=== PATIENT | male | born 1985 | race Hispanic/Latino ===

== ENCOUNTER 2017-11-07 20:15 | Emergency (ER) | payer SELFPAY ==
[2017-11-07 22:07] LABS: Absolute Monocytes 0.7 K/uL (0.1-1.3)
[2017-11-07 22:10] LABS: Absolute Lymphocytes (CBC) 2.6 K/uL (0.7-4.9); Absolute Neutrophil 5.4 K/uL (1.8-8.0); Basophils % 0.8 % (0-1.3); Eosinophils % 3.1 % (0-4.4); Hematocrit 40.4 % (39.6-49.0); Lymphocytes % 28.5 % (15.3-44.8); MCV 85.8 fL (80-100); MPV 8.6 fL (7.6-11.3); Monocytes % 7.8 % (3.3-12.3); RBC Red Blood Cell Count 4.71 M/uL (4.33-5.43)
[2017-11-07 22:12] LABS: Bicarbonate 28 mEq/L (21-31); Glucose Level 99 mg/dL (65-120); Lipase 34 U/L (22-51); Potassium 3.6 mEq/L (3.6-5.0); Sodium Level 140 mEq/L (135-145)
[2017-11-07 22:17] LABS: Urine Blood NEGATIVE (NEG); Urine Glucose NEGATIVE (NEG); Urine Protein NEGATIVE (NEG); Urine Specific Gravity >1.030 (1.005-1.030)
[2017-11-07 22:18] LABS: ALT/SGPT 28 IU/L (10-60); AST/SGOT 24 IU/L (10-42); Albumin 4.2 g/dL (3.2-5.5); Alkaline Phosphatase 81 IU/L (42-121); BUN Blood Urea Nitrogen 18 mg/dL (6-20); Bilirubin Direct < 0.1 mg/dL (0-0.2); Bilirubin Total 0.3 mg/dL (0.3-1.2); Protein, Total 7.7 g/dL (6.0-8.3)
[2017-11-07] MEDS ORDERED: KETOROLAC 30 MG/ML INJ ONE (22:29)
[2017-11-08] MEDS ORDERED: CYCLOBENZAPRINE 10 MG TAB ONE (00:40)
--- NOTE | 2017-11-08 00:42 | EDPHYS ---
Physician Documentation [facility] Name: Mateo Gilliam Age: 32 yrs Sex: Male : 1985 Arrival Date: 11/07/2017 Time: 20:16 Bed 27 Private MD: ED Physician Haider Rodrigues HPI: 11/07 23:00 This 32 yrs old Male presents to ER via Ambulatory with complaints of Back pm1 Pain. 23:00 The patient presents with pain . The symptoms are located in the right mid back. Onset: pm1 The symptoms/episode began/occurred 1 month(s) ago. The pain does not radiate. Associated signs and symptoms: Pertinent negatives: abdominal pain, chest pain, dysuria, fever, headache, nausea, vomiting. The problem was sustained possibly lifting or stretching on month ago. Modifying factors: The patient symptoms are alleviated by nothing, the patient symptoms are aggravated by movement. The patient has not experienced similar symptoms in the past. When patient has spasms of back pain, he feels dizziness. Historical: - Allergies: 20:25 No Known Allergies; aj - Home Meds: 20:25 None [Active]; aj - PMHx: 20:25 None; aj - PSHx: 20:25 None; aj - Immunization history:: Adult Immunizations up to date. - Social history:: Smoking status: Patient/guardian denies using tobacco, Patient uses street drugs, marijuana. ROS: 23:00 Constitutional: Negative for fever, chills, and weight loss, Eyes: Negative for injury, pm1 pain, redness, and discharge, ENT: Negative for injury, pain, and discharge, Neck: Negative for injury, pain, and swelling, Cardiovascular: Negative for chest pain, palpitations, and edema, Respiratory: Negative for shortness of breath, cough, wheezing, and pleuritic chest pain, Abdomen/GI: Negative for abdominal pain, nausea, vomiting, diarrhea, and constipation. 23:00 : Negative for injury, bleeding, discharge, and swelling, MS/Extremity: Negative for injury and deformity, Skin: Negative for injury, rash, and discoloration. 23:00 Back: Positive for of the right mid back, Pain, Negative for decreased range of motion, radiated pain. 23:00 Neuro: Positive for dizziness, Negative for headache, numbness, syncope, near syncope, tingling, visual changes, weakness. Exam: 23:00 Constitutional: This is a well developed, well nourished patient who is awake, alert, pm1 and in no acute distress. Head/Face: Normocephalic, atraumatic. Eyes: Pupils equal round and reactive to light, extra-ocular motions intact. Lids and lashes normal. Conjunctiva and sclera are non-icteric and not injected. Cornea within normal limits. Periorbital areas with no swelling, redness, or edema. ENT: Nares patent. No nasal discharge, no septal abnormalities noted. Tympanic membranes are normal and external auditory canals are clear. Oropharynx with no redness, swelling, or masses, exudates, or evidence of obstruction, uvula midline. Mucous membranes moist. Neck: Trachea midline, no thyromegaly or masses palpated, and no cervical lymphadenopathy. Supple, full range of motion without nuchal rigidity, or vertebral point tenderness. No Meningismus. Chest/axilla: Normal chest wall appearance and motion. Nontender with no deformity. No lesions are appreciated. Cardiovascular: Regular rate and rhythm with a normal S1 and S2. No gallops, murmurs, or rubs. Normal PMI, no JVD. No pulse deficits. Respiratory: Lungs have equal breath sounds bilaterally, clear to auscultation and percussion. No rales, rhonchi or wheezes noted. No increased work of breathing, no retractions or nasal flaring. Abdomen/GI: Soft, non-tender, with normal bowel sounds. No distension or tympany. No guarding or rebound. No evidence of tenderness throughout. 23:00 Skin: Warm, dry with normal turgor. Normal color with no rashes, no lesions, and no evidence of cellulitis. MS/ Extremity: Pulses equal, no cyanosis. Neurovascular intact. Full, normal range of motion. 23:00 Back: pain, that is mild, of the right mid back, normal spinal alignment noted. 23:00 Neuro: Orientation: is normal, Mentation: is normal, Cranial nerves: CN II- XII are normal as tested, Cerebellar function: normal finger to nose testing, Motor: moves all fours, strength is normal, strength is 5/5 in all extremities, Sensation: is normal, no obvious gross deficits. Vital Signs: 20:25 BP 157 / 97; Pulse 88; Resp 17; Temp 97.5; Pulse Ox 98% on R/A; Weight 99.79 kg; Height aj 5 ft. 5 in. (165.10 cm); Pain 7/10; 21:59 BP 134 / 87; Pulse 78; Resp 18 S; Pulse Ox 99% on R/A; Pain 7/10; ea 22:45 BP 131 / 77; Pulse 76; Resp 18; Pulse Ox 100% on R/A; ea 23:30 BP 134 / 82; Pulse 71; Resp 18 S; Pulse Ox 99% on R/A; ea 11/08 00:43 BP 139 / 86; Pulse 60; Resp 18; Pulse Ox 99% on R/A; ea 11/07 20:25 Body Mass Index 36.61 (99.79 kg, 165.10 cm) aj MDM: 11/07 21:00 Patient medically screened. pm1 11/08 00:36 Data reviewed: vital signs. Data interpreted: Pulse oximetry: on room air is 99 %. pm1 Interpretation: normal. Counseling: I had a detailed discussion with the patient and/or guardian regarding: the historical points, exam findings, and any diagnostic results supporting the discharge/admit diagnosis, lab results. 11/07 21:25 Order name: Basic Metabolic Panel; Complete Time: 22:22 pm1 11/07 21:25 Order name: CBC with Diff; Complete Time: 22:17 pm1 11/07 21:25 Order name: Hepatic Function; Complete Time: 22:22 pm1 11/07 21:25 Order name: Lipase; Complete Time: 22:22 pm1 11/07 22:10 Order name: Urine Dipstick--Ancillary (enter results); Complete Time: 22:22 rg2 11/07 21:25 Order name: IV Saline Lock; Complete Time: 21:56 pm1 11/07 21:25 Order name: Labs collected and sent; Complete Time: 21:56 pm1 11/07 21:25 Order name: Urine Dipstick-Ancillary (obtain specimen); Complete Time: 21:57 pm1 Administered Medications: 11/07 22:41 Drug: TORadol 30 mg Route: IVP; Site: right antecubital; ea 11/08 00:43 Follow up: Response: No adverse reaction; Pain is decreased ea 00:45 Drug: Flexeril 10 mg Route: PO; ea 00:59 Follow up: Response: Medication administered at discharge. kristyn Disposition: 03:01 Co-signature as Attending Physician, Haider Rodrigues MD. treva Disposition: 11/08/17 00:41 Discharged to Home. Impression: Strain of muscle and tendon of back wall of thorax. - Condition is Stable. - Discharge Instructions: Muscle Strain. - Prescriptions for Naprosyn 500 mg Oral Tablet - take 1 tablet by ORAL route 2 times per day take with food; 30 tablet. Cyclobenzaprine 10 mg Oral Tablet - take 1 tablet by ORAL route every 8 hours As needed; 30 tablet. - Medication Reconciliation Form, Thank You Letter form. - Follow up: Emergency Department; When: As needed; Reason: Worsening of condition. Follow up: Private Physician; When: 2 - 3 days; Reason: Recheck today's complaints, Continuance of care, Re-evaluation by your physician. - Problem is new. - Symptoms have improved. Signatures: Dispatcher [employer] EDMS Alicia Ball, RN Justin Leon, AIRLINE MANAGERIAL SUPERVISOR AIRLINE MANAGERIAL SUPERVISOR pm1 Rylie Baugh RN RN ea Starr, Gregory, MD MD
--- NOTE | 2017-11-08 00:42 | ER ---
Nurse's Notes [facility] Name: Mateo Gilliam Age: 32 yrs Sex: Male : 1985 Arrival Date: 11/07/2017 Time: 20:16 Bed 27 Private MD: Diagnosis: Strain of muscle and tendon of back wall of thorax Presentation: 11/07 20:23 Presenting complaint: Presenting complaint: Patient states: Upper back pain with aj dizziness and blurred vision for 1 month. Patent reports pain is unchanged with repositioning or medication. 20:23 Transition of care: patient was not received from another setting of care. Onset of aj symptoms was October 07, 2017. Initial Sepsis Screen: Does the patient meet any 2 criteria? No. Patient's initial sepsis screen is negative. Does the patient have a suspected source of infection? No. Patient's initial sepsis screen is negative. Care prior to arrival: None. 20:23 Method Of Arrival: Ambulatory aj 20:23 Acuity: BONITA 4 aj Triage Assessment: 20:25 General: Appears in no apparent distress. comfortable, Behavior is calm, cooperative, aj appropriate for age. Pain: Complains of pain in left scapular area, right scapular area and thoracic area Pain currently is 7 out of 10 on a pain scale. Neuro: Level of Consciousness is awake, alert, obeys commands, Oriented to person, place, time, situation. Neuro: Reports blurred vision dizziness. Respiratory: Airway is patent Respiratory effort is even, unlabored, Respiratory pattern is regular, symmetrical. Derm: Skin is intact, is healthy with good turgor, Skin is pink, warm \T\ dry. normal. Musculoskeletal: Circulation, motion, and sensation intact. Historical: - Allergies: 20:25 No Known Allergies; aj - Home Meds: 20:25 None [Active]; aj - PMHx: 20:25 None; aj - PSHx: 20:25 None; aj - Immunization history:: Adult Immunizations up to date. - Social history:: Smoking status: Patient/guardian denies using tobacco, Patient uses street drugs, marijuana. Screenin:15 Abuse screen: Denies threats or abuse. Nutritional screening: No deficits noted. ea Tuberculosis screening: No symptoms or risk factors identified. Fall Risk None identified. Assessment: 21:09 General: Appears in no apparent distress. Behavior is calm, cooperative, appropriate ea for age. Pain: Complains of pain in right mid back and right low back. Pain: Pain radiates to left low back and left mid back Pain currently is 7 out of 10 on a pain scale. Quality of pain is described as burning, Pain began month ago Is intermittent. Neuro: Level of Consciousness is awake, alert, obeys commands, Oriented to person, place, time, situation. Cardiovascular: Heart tones present Patient's skin is warm and dry. Respiratory: Airway is patent Respiratory effort is even, unlabored, Respiratory pattern is regular, symmetrical, Breath sounds are clear bilaterally. GI: No signs and/or symptoms were reported involving the gastrointestinal system. : No signs and/or symptoms were reported regarding the genitourinary system. Derm: Skin is pink, warm \T\ dry. 22:50 Reassessment: Patient and/or family updated on plan of care and expected duration. Pain ea level reassessed. Patient is alert, oriented x 3, equal unlabored respirations, skin warm/dry/pink. 23:50 Reassessment: Patient and/or family updated on plan of care and expected duration. Pain ea level reassessed. Patient is alert, oriented x 3, equal unlabored respirations, skin warm/dry/pink. 11/08 00:34 Reassessment: Patient and/or family updated on plan of care and expected duration. Pain ea level reassessed. Patient is alert, oriented x 3, equal unlabored respirations, skin warm/dry/pink. 00:57 Reassessment: Patient and/or family updated on plan of care and expected duration. Pain ea level reassessed. Patient is alert, oriented x 3, equal unlabored respirations, skin warm/dry/pink. Discharge instructions given to patient verbalized the understanding of instruction. Vital Signs: 11/07 20:25 BP 157 / 97; Pulse 88; Resp 17; Temp 97.5; Pulse Ox 98% on R/A; Weight 99.79 kg; Height aj 5 ft. 5 in. (165.10 cm); Pain 7/10; 21:59 BP 134 / 87; Pulse 78; Resp 18 S; Pulse Ox 99% on R/A; Pain 7/10; ea 22:45 BP 131 / 77; Pulse 76; Resp 18; Pulse Ox 100% on R/A; ea 23:30 BP 134 / 82; Pulse 71; Resp 18 S; Pulse Ox 99% on R/A; ea 11/08 00:43 BP 139 / 86; Pulse 60; Resp 18; Pulse Ox 99% on R/A; ea 11/07 20:25 Body Mass Index 36.61 (99.79 kg, 165.10 cm) aj ED Course: 11/07 20:16 Patient arrived in ED. ds1 20:24 Triage completed. aj 20:25 Arm band placed on left wrist. Patient placed in waiting room, Patient notified of wait aj time. 20:31 Justin Weiss NP is PHCP. pm1 20:31 Haider Rodrigues MD is Attending Physician. pm1 21:00 Patient has correct armband on for positive identification. Bed in low position. Call ea light in reach. Side rails up X 1. 21:01 Rylie Baugh RN is Primary Nurse. ea 21:42 Inserted saline lock: 20 gauge in right antecubital area, using aseptic technique. ea Blood collected. 11/08 00:58 No provider procedures requiring assistance completed. IV discontinued, intact, ea bleeding controlled, No redness/swelling at site. Pressure dressing applied. Administered Medications: 11/07 22:41 Drug: TORadol 30 mg Route: IVP; Site: right antecubital; ea 11/08 00:43 Follow up: Response: No adverse reaction; Pain is decreased ea 00:45 Drug: Flexeril 10 mg Route: PO; ea 00:59 Follow up: Response: Medication administered at discharge. ea Outcome: 00:41 Discharge ordered by MD. pm1 00:58 Discharged to home ambulatory. ea 00:58 Condition: improved 00:58 Discharge instructions given to patient, Instructed on discharge instructions, follow up and referral plans. medication usage, Demonstrated understanding of instructions, follow-up care, medications, Prescriptions given X 2. 01:00 Patient left the ED. ea Signatures: Alicia Ball RN RN Adriane Miner ds1 Justin Weiss NP FIELD COUNSEL pm1 Rylie Baugh, IVAN LOVE ea Corrections: (The following items were deleted from the chart) 11/07 20:24 20:23 Presenting complaint: aj aj
[2017-11-08 01:10] VITALS: TEMP 97.5
[2017-11-08 01:13] VITALS: O2SAT 99
[2017-11-08 01:14] VITALS: BP 139/86
== END 2017-11-08 01:00 | disposition home or self-care (01) ==
LOC: ER 20:15
DX: S29.012A Strain of muscle and tendon of back wall of thorax, initial encounter (principal); X50.9XXA Other and unspecified overexertion or strenuous movements or postures, initial encounter; Y93.9 Activity, unspecified; Y92.9 Unspecified place or not applicable
CPT/HCPCS: 36415; 80048; 80076; 81003; 83690; 85025; 96374; 99284

== ENCOUNTER 2018-06-02 13:21 | Emergency (ER) | payer SELFPAY ==
--- NOTE | 2018-06-02 14:35 | RAD REPORT ---
EXAM DESCRIPTION: RAD - Forearm Left - 06/02/2018 2:21 pm CLINICAL HISTORY: Left forearm pain status post injury FINDINGS: No fracture is seen
--- NOTE | 2018-06-02 15:04 | EDPHYS ---
Physician Documentation [facility] Name: Mateo Gilliam Age: 33 yrs Sex: Male : 1985 Arrival Date: 06/02/2018 Time: 13:24 Bed 30 Private MD: None, None ED Physician Jewel To HPI: 06/02 14:05 This 33 yrs old Male presents to ER via Ambulatory with complaints of Arm ps1 Injury. 14:05 patient was shoveling a couple of days ago and thinks he hit a root. He has pain in the ps1 left forearm on the dorsal aspect. Pain rated as moderate. Worse with dorsiflexion of wrist. Mild swelling. . Historical: - Allergies: 13:32 No Known Allergies; sv - Home Meds: 13:32 None [Active]; sv - PMHx: 13:32 None; sv - PSHx: 13:32 None; sv - Immunization history:: Flu vaccine is not up to date. - Social history:: Smoking status: Patient uses tobacco products, smokes one-half pack cigarettes per day. - Ebola Screening: : No symptoms or risks identified at this time. ROS: 14:05 Constitutional: Negative for fever, chills, and weight loss, Eyes: Negative for injury, ps1 pain, redness, and discharge, Cardiovascular: Negative for chest pain, palpitations, and edema, Respiratory: Negative for shortness of breath, cough, wheezing, and pleuritic chest pain, Abdomen/GI: Negative for abdominal pain, nausea, vomiting, diarrhea, and constipation. 14:05 MS/extremity: Positive for pain, swelling, tenderness. Exam: 14:05 Constitutional: This is a well developed, well nourished patient who is awake, alert, ps1 and in no acute distress. Head/Face: Normocephalic, atraumatic. Eyes: Pupils equal round and reactive to light, extra-ocular motions intact. Lids and lashes normal. Conjunctiva and sclera are non-icteric and not injected. Chest/axilla: Normal chest wall appearance and motion. Nontender with no deformity. No lesions are appreciated. Cardiovascular: Regular rate and rhythm. No gallops, murmurs, or rubs. Normal PMI, no JVD. No pulse deficits. Respiratory: Lungs have equal breath sounds bilaterally, clear to auscultation and percussion. No rales, rhonchi or wheezes noted. No increased work of breathing, no retractions or nasal flaring. Abdomen/GI: Soft, non-tender, with normal bowel sounds. No distension or tympany. No guarding or rebound. No evidence of tenderness throughout. MS/ Extremity: Pulses equal, no cyanosis. Neurovascular intact. Full, normal range of motion. Neuro: Awake and alert, GCS 15, oriented to person, place, time, and situation. Cranial nerves II-XII grossly intact. Sensory grossly intact. Vital Signs: 13:32 BP 131 / 87; Pulse 85; Resp 18; Temp 97.4; Pulse Ox 100% ; Weight 97.52 kg; Height 5 sv ft. 5 in. (165.10 cm); Pain 10; 13:32 Body Mass Index 35.78 (97.52 kg, 165.10 cm) sv MDM: 14:14 Patient medically screened. ps1 06/02 13:35 Order name: Forearm Left XRAY; Complete Time: 14:41 sv Administered Medications: No medications were administered Disposition: 06/02/18 14:50 Discharged to Home. Impression: Extensor Tendonitis left arm. - Condition is Stable. - Discharge Instructions: Tendinitis. - Prescriptions for Anaprox DS 550 mg Oral Tablet - take 1 tablet by ORAL route every 12 hours As needed; 20 tablet. Robaxin 500 mg Oral Tablet - take 2 tablet by ORAL route every 6 hours As needed; 40 tablet. Medrol (Neal) 4 mg Oral Tablets, Dose Pack - take 1 tablet by ORAL route as directed - follow package instructions; 1 packet. - Medication Reconciliation Form, Thank You Letter, Antibiotic Education, Prescription Opioid Use form. - Follow up: Private Physician; When: As needed; Reason: Further diagnostic work-up, Recheck today's complaints, Continuance of care, Re-evaluation by your physician. Follow up: Emergency Department; When: As needed; Reason: Worsening of condition. - Problem is new. - Symptoms are unchanged. Signatures: Dispatcher [employer] Louise Travis RN RN sv Mily Kelly RN RN Jewel Watkins MD MD ps1 Corrections: (The following items were deleted from the chart) 15:02 14:50 06/02/2018 14:50 Discharged to Home. Impression: Extensor Tendonitis left arm. ss Condition is Stable. Forms are Medication Reconciliation Form, Thank You Letter, Antibiotic Education, Prescription Opioid Use. Follow up: Private Physician; When: As needed; Reason: Further diagnostic work-up, Recheck today's complaints, Continuance of care, Re-evaluation by your physician. Follow up: Emergency Department; When: As needed; Reason: Worsening of condition. Problem is new. Symptoms are unchanged. ps1
--- NOTE | 2018-06-02 15:04 | ER ---
Nurse's Notes [facility] Name: Mateo Gilliam Age: 33 yrs Sex: Male : 1985 Arrival Date: 06/02/2018 Time: 13:24 Bed 30 Private MD: None, None Diagnosis: Extensor Tendonitis left arm Presentation: 06/02 13:30 Presenting complaint: Patient states: left forearm pain after shoveling yesterday at sv work and hit a hard tree trunk. Transition of care: patient was not received from another setting of care. Onset of symptoms was June 01, 2018. Care prior to arrival: None. 13:30 Method Of Arrival: Ambulatory sv 13:30 Acuity: BONITA 4 sv 15:02 Risk Assessment: Do you want to hurt yourself or someone else? Patient reports no ss desire to harm self or others. Initial Sepsis Screen: Does the patient meet any 2 criteria? No. Patient's initial sepsis screen is negative. Does the patient have a suspected source of infection? No. Patient's initial sepsis screen is negative. Triage Assessment: 13:33 General: Appears in no apparent distress. uncomfortable, Behavior is calm, cooperative, sv appropriate for age. Pain: Complains of pain in left arm. Neuro: Level of Consciousness is awake, alert, obeys commands, Oriented to person, place, time, situation, Moves all extremities. Full function Gait is steady. Respiratory: Respiratory effort is even, unlabored, Respiratory pattern is regular, symmetrical. 13:45 Injury Description: Bruise sustained to dorsal aspect of left forearm. iw Historical: - Allergies: 13:32 No Known Allergies; sv - Home Meds: 13:32 None [Active]; sv - PMHx: 13:32 None; sv - PSHx: 13:32 None; sv - Immunization history:: Flu vaccine is not up to date. - Social history:: Smoking status: Patient uses tobacco products, smokes one-half pack cigarettes per day. - Ebola Screening: : No symptoms or risks identified at this time. Screenin:08 Abuse screen: Denies threats or abuse. Denies injuries from another. Nutritional iw screening: No deficits noted. Tuberculosis screening: No symptoms or risk factors identified. Fall Risk None identified. Assessment: 14:07 General: Appears in no apparent distress. comfortable, Behavior is calm, cooperative. iw Pain: Complains of pain in dorsal aspect of left forearm and left wrist. Neuro: Level of Consciousness is awake, alert, obeys commands, Oriented to person, place, time, situation, Moves all extremities. Full function. Cardiovascular: Patient's skin is warm and dry. Respiratory: Respiratory effort is even, unlabored, Respiratory pattern is regular, symmetrical. GI:. Derm: Skin is intact, is healthy with good turgor. Musculoskeletal: Reports pain in left arm. Vital Signs: 13:32 BP 131 / 87; Pulse 85; Resp 18; Temp 97.4; Pulse Ox 100% ; Weight 97.52 kg; Height 5 sv ft. 5 in. (165.10 cm); Pain 10/10; 13:32 Body Mass Index 35.78 (97.52 kg, 165.10 cm) sv ED Course: 13:24 Patient arrived in ED. sb2 13:24 None, None is Private Physician. sb2 13:32 Triage completed. sv 13:33 Arm band placed on. sv 14:01 Jewel To MD is Attending Physician. ps1 14:02 Yvonne Harrington, RN is Primary Nurse. iw 14:08 Patient has correct armband on for positive identification. iw 14:19 X-ray completed. Portable x-ray completed in exam room. Patient tolerated procedure jb2 well. 14:21 Forearm Left XRAY In Process Unspecified. EDMS 15:00 No provider procedures requiring assistance completed. Patient did not have IV access ss during this emergency room visit. Administered Medications: No medications were administered Outcome: 14:50 Discharge ordered by . ps1 15:00 Discharged to home ambulatory. ss 15:00 Condition: good 15:00 Discharge instructions given to patient, Instructed on discharge instructions, follow up and referral plans. medication usage, Demonstrated understanding of instructions, follow-up care, medications, Prescriptions given X 3. 15:02 Patient left the ED. ss Signatures: Dispatcher [employer] EDNJ Louise Malone, IVAN LOVE Alfa Guerra jb2 Yvonne Harrington, IVAN LOVE Mily Kelly RN RN Jewel To MD MD ps1 Marisa Decker sb2
[2018-06-02 15:26] VITALS: BP 131/87; TEMP 97.4; O2SAT 100
== END 2018-06-02 15:02 | disposition home or self-care (01) ==
LOC: ER 13:21
DX: M77.8 Other enthesopathies, not elsewhere classified (principal)
CPT/HCPCS: 99283

== ENCOUNTER 2018-08-07 04:36 | Emergency (ER) | payer SELFPAY ==
[2018-08-07] MEDS ORDERED: NA CHLORIDE 0.9% 1,000 ML ONE (05:21)
[2018-08-07 05:22] LABS: Absolute Lymphocytes (CBC) 1.5 K/uL (0.7-4.9); Absolute Monocytes 1.3 K/uL (0.1-1.3); Absolute Neutrophil 7.6 K/uL (1.8-8.0); Basophils % 0.6 % (0-1.3); Hematocrit 46.8 % (39.6-49.0); Lymphocytes % 13.8 % (15.3-44.8); MPV 8.8 fL (7.6-11.3); Monocytes % 12.6 % (3.3-12.3); RBC Red Blood Cell Count 5.29 M/uL (4.33-5.43)
[2018-08-07 05:33] LABS: ALT/SGPT 33 U/L (12-78); AST/SGOT 19 U/L (15-37); Albumin 3.8 g/dL (3.4-5.0); Alkaline Phosphatase 94 U/L (45-117); BUN Blood Urea Nitrogen 19 mg/dL (7-18); Bicarbonate 25 mmol/L (21-32); Bilirubin Direct 0.1 mg/dL (0-0.2); Bilirubin Total 0.4 mg/dL (0.2-1.0); Glucose Level 104 mg/dL (74-106); Lipase 117 U/L (73-393); Potassium 3.7 mmol/L (3.5-5.1); Protein, Total 7.9 g/dL (6.4-8.2); Sodium Level 139 mmol/L (136-145)
[2018-08-07] MEDS ORDERED: CIPROFLOXACIN 400mg IV 400 MG/200 ML BAG IV ONE (06:29)
[2018-08-07] MEDS ORDERED: METRONIDAZOLE 500mg IVPB 500 MG/100 ML BAG IV ONE (06:29)
--- NOTE | 2018-08-07 06:58 | RAD REPORT ---
EXAM DESCRIPTION: RAD - Chest Single View - 08/07/2018 5:30 am CLINICAL HISTORY: Right-sided chest pain COMPARISON: July 2017 TECHNIQUE: AP portable chest image was obtained [id number] hours . FINDINGS: Lungs are clear. Heart and vasculature are normal. No measurable pleural effusion and no p neumothorax. No acute bony abnormality seen. No acute aortic findings suspected. IMPRESSION: No acute cardiopulmonary process. No significant interval change.
--- NOTE | 2018-08-07 07:19 | ER ---
Nurse's Notes [facility] Name: Mateo Gilliam Age: 33 yrs Sex: Male : 1985 Arrival Date: 08/07/2018 Time: 04:40 Bed 14 Private MD: Diagnosis: Abdominal tenderness-mild enteritis, non specific prominence of mesenteric lymph nodes Presentation: 08/07 04:54 Presenting complaint: Patient states: he has had pain in his R side and diarrhea for aa1 several months but last night the pain became worse and he started having chills. Transition of care: patient was not received from another setting of care. Onset of symptoms was May 2018. Risk Assessment: Do you want to hurt yourself or someone else? Patient reports no desire to harm self or others. Initial Sepsis Screen: Does the patient meet any 2 criteria? No. Patient's initial sepsis screen is negative. Does the patient have a suspected source of infection? Yes: Acute abdominal pain. Care prior to arrival: None. 04:54 Method Of Arrival: Ambulatory aa1 04:54 Acuity: BONITA 3 aa1 Triage Assessment: 04:56 General: Appears in no apparent distress. comfortable, Behavior is calm, cooperative, aa1 appropriate for age. Historical: - Allergies: 04:56 No Known Allergies; aa1 - Home Meds: 04:56 None [Active]; aa1 - PMHx: 04:56 None; aa1 - PSHx: 04:56 None; aa1 - Immunization history:: Flu vaccine is not up to date. - Social history:: Smoking status: Patient/guardian denies using tobacco, Patient uses street drugs, marijuana. - Ebola Screening: : No symptoms or risks identified at this time. Screenin:00 Abuse screen: Denies threats or abuse. Nutritional screening: No deficits noted. jb4 Tuberculosis screening: No symptoms or risk factors identified. Fall Risk IV access (20 points). Total Ball Fall Scale indicates No Risk (0-24 pts). Assessment: 05:00 General: Appears in no apparent distress. uncomfortable, Behavior is calm, cooperative, jb4 appropriate for age. Pain: Complains of pain in abdomen Pain does not radiate. Pain currently is 8 out of 10 on a pain scale. Neuro: Level of Consciousness is awake, alert, obeys commands, Oriented to person, place, time, situation. Cardiovascular: Patient's skin is warm and dry. Respiratory: Airway is patent Respiratory effort is even, unlabored, Respiratory pattern is regular, symmetrical. GI: Bowel sounds present X 4 quads. Abd is soft X 4 quads Abdomen is tender to palpation X 4 quads. : No signs and/or symptoms were reported regarding the genitourinary system. EENT: No signs and/or symptoms were reported regarding the EENT system. Derm: Skin is intact, Skin is pink, warm \T\ dry. Musculoskeletal: Circulation, motion, and sensation intact. 06:39 Reassessment: Patient appears in no apparent distress at this time. Patient and/or aa1 family updated on plan of care and expected duration. Pain level reassessed. Patient is alert, oriented x 3, equal unlabored respirations, skin warm/dry/pink. Pt back from CT, awaiting results. 07:00 General: Appears in no apparent distress. comfortable, Behavior is calm, cooperative. rb1 Pain: Complains of pain in abdomen Pain currently is 5 out of 10 on a pain scale. Neuro: Level of Consciousness is awake, alert, obeys commands, Oriented to person, place, time, situation. Cardiovascular: Capillary refill < 3 seconds is brisk in bilateral fingers. Respiratory: Airway is patent Respiratory effort is even, unlabored, Respiratory pattern is regular, symmetrical. GI: Bowel sounds present X 4 quads. Reports diarrhea. : No signs and/or symptoms were reported regarding the genitourinary system. Derm: Skin is pink, warm \T\ dry. 07:23 Reassessment: Discharge pending due to IV antibiotics infusing. rb1 07:45 Reassessment: Patient appears in no apparent distress at this time. Patient and/or rb1 family updated on plan of care and expected duration. Pain level reassessed. Patient is alert, oriented x 3, equal unlabored respirations, skin warm/dry/pink. Patient states feeling better. Vital Signs: 04:56 BP 134 / 87; Pulse 91; Resp 18; Temp 98.8; Pulse Ox 98% on R/A; Weight 95.25 kg; Height aa1 5 ft. 5 in. (165.10 cm); Pain 10/10; 05:45 BP 120 / 74; Pulse 88; Resp 18; Pulse Ox 99% on R/A; aa1 06:39 BP 134 / 88; Pulse 82; Resp 18; Pulse Ox 100% on R/A; aa1 07:22 BP 125 / 77; Pulse 85; Resp 17; Pulse Ox 99% on R/A; Pain 5/10; rb1 04:56 Body Mass Index 34.95 (95.25 kg, 165.10 cm) aa1 ED Course: 04:40 Patient arrived in ED. es 04:48 Pradip Damico MD is Attending Physician. mary 04:50 Gil Klein, IVAN is Primary Nurse. jb4 04:56 Triage completed. aa1 05:00 Patient has correct armband on for positive identification. Placed in gown. Bed in low jb4 position. Call light in reach. Side rails up X 1. Pulse ox on. NIBP on. 05:00 Initial lab(s) drawn, by nh, sent to lab. Inserted saline lock: 20 gauge in right jb4 forearm, using aseptic technique. Blood collected. 05:29 X-ray completed. Portable x-ray completed in exam room. Patient tolerated procedure kw well. 05:32 Chest Single View In Process Unspecified. EDMS 06:[address] via wheelchair. eh 06:26 Abdomen In Process Unspecified. EDMS 06:28 CT completed. Patient tolerated procedure well. Patient moved back from CT. eh 07:00 Arm band placed on right wrist. rb1 07:17 Yvrose Sahni MD is Referral Physician. mary 07:48 No provider procedures requiring assistance completed. IV discontinued, intact, rb1 bleeding controlled, No redness/swelling at site. Pressure dressing applied. Administered Medications: 05:14 Drug: NS 0.9% 1000 ml Route: IV; Rate: 1 bolus; Site: right forearm; jb4 06:40 Drug: Flagyl 500 mg Volume: 100 ml; Route: IVPB; Rate: 200 ml/hr; Infused Over: 30 aa1 mins; Site: right forearm; 07:00 Follow up: Response: No adverse reaction rb1 07:45 Follow up: IV Status: Completed infusion rb1 06:41 Drug: Cipro 400 mg Volume: 200 ml; Route: IVPB; Infused Over: 60 mins; Site: right aa1 forearm; 07:00 Follow up: Response: No adverse reaction rb1 07:45 Follow up: IV Status: Completed infusion rb1 Outcome: 07:19 Discharge ordered by . mary 07:49 Discharged to home ambulatory, with family. rb1 07:49 Condition: stable 07:49 Discharge instructions given to patient, Instructed on discharge instructions, follow up and referral plans. medication usage, Demonstrated understanding of instructions, follow-up care, medications, Prescriptions given X x 5 07:50 Patient left the ED. rb1 Signatures: Dispatcher [employer] Celi Rich, RN RN aa1 Pradip Damico MD MD cha Salyer, Edna es Hagler, Ervin eh Whitley, Kimberlee kw Barber, Rebecca, RN RN rb1 Gil Klein RN RN jb4
--- NOTE | 2018-08-07 07:20 | EDPHYS ---
Physician Documentation [facility] Name: Mateo Gilliam Age: 33 yrs Sex: Male : 1985 Arrival Date: 08/07/2018 Time: 04:40 Bed 14 Private MD: JYOTSNA Physician Pradip Damico HPI: 08/07 05:51 This 33 yrs old Male presents to ER via Ambulatory with complaints of mary Abdominal Pain, Fever. 05:51 The patient reports fever, that was measured at 98.8 degrees Fahrenheit. Onset: The mary symptoms/episode began/occurred 1 week(s) ago. Modifying factors: there are no obvious modifying factors. Associated signs and symptoms: Pertinent positives: abdominal pain. Severity of symptoms: At their worst the symptoms were mild moderate in the emergency department the symptoms are unchanged despite home interventions. The patient has not experienced similar symptoms in the past. Historical: - Allergies: 04:56 No Known Allergies; aa1 - Home Meds: 04:56 None [Active]; aa1 - PMHx: 04:56 None; aa1 - PSHx: 04:56 None; aa1 - Immunization history:: Flu vaccine is not up to date. - Social history:: Smoking status: Patient/guardian denies using tobacco, Patient uses street drugs, marijuana. - Ebola Screening: : No symptoms or risks identified at this time. ROS: 05:52 Constitutional: Negative for fever, chills, and weight loss, Eyes: Negative for injury, mary pain, redness, and discharge, ENT: Negative for injury, pain, and discharge, Neck: Negative for injury, pain, and swelling, Cardiovascular: Negative for chest pain, palpitations, and edema, Respiratory: Negative for shortness of breath, cough, wheezing, and pleuritic chest pain, Back: Negative for injury and pain, : Negative for injury, bleeding, discharge, and swelling, MS/Extremity: Negative for injury and deformity, Skin: Negative for injury, rash, and discoloration, Neuro: Negative for headache, weakness, numbness, tingling, and seizure, Psych: Negative for depression, anxiety, suicide ideation, homicidal ideation, and hallucinations, Allergy/Immunology: Negative for hives, rash, and allergies, Endocrine: Negative for neck swelling, polydipsia, polyuria, polyphagia, and marked weight changes, Hematologic/Lymphatic: Negative for swollen nodes, abnormal bleeding, and unusual bruising. 05:52 Abdomen/GI: Positive for abdominal pain, rectal bleeding, of the left upper quadrant and left lower quadrant. Exam: 05:52 Constitutional: This is a well developed, well nourished patient who is awake, alert, mary and in no acute distress. Head/Face: Normocephalic, atraumatic. Eyes: Pupils equal round and reactive to light, extra-ocular motions intact. Lids and lashes normal. Conjunctiva and sclera are non-icteric and not injected. Cornea within normal limits. Periorbital areas with no swelling, redness, or edema. ENT: Nares patent. No nasal discharge, no septal abnormalities noted. Tympanic membranes are normal and external auditory canals are clear. Oropharynx with no redness, swelling, or masses, exudates, or evidence of obstruction, uvula midline. Mucous membranes moist. Neck: Trachea midline, no thyromegaly or masses palpated, and no cervical lymphadenopathy. Supple, full range of motion without nuchal rigidity, or vertebral point tenderness. No Meningismus. Chest/axilla: Normal chest wall appearance and motion. Nontender with no deformity. No lesions are appreciated. Cardiovascular: Regular rate and rhythm with a normal S1 and S2. No gallops, murmurs, or rubs. Normal PMI, no JVD. No pulse deficits. Respiratory: Lungs have equal breath sounds bilaterally, clear to auscultation and percussion. No rales, rhonchi or wheezes noted. No increased work of breathing, no retractions or nasal flaring. Back: No spinal tenderness. No costovertebral tenderness. Full range of motion. Male : Normal genitalia with no discharge or lesions. Skin: Warm, dry with normal turgor. Normal color with no rashes, no lesions, and no evidence of cellulitis. MS/ Extremity: Pulses equal, no cyanosis. Neurovascular intact. Full, normal range of motion. Neuro: Awake and alert, GCS 15, oriented to person, place, time, and situation. Cranial nerves II-XII grossly intact. Motor strength 5/5 in all extremities. Sensory grossly intact. Cerebellar exam normal. Normal gait. Psych: Awake, alert, with orientation to person, place and time. Behavior, mood, and affect are within normal limits. 05:52 Abdomen/GI: Inspection: distension, Bowel sounds: active, Palpation: soft, Liver: no appreciated palpable abnormalities, Hernia: not appreciated. Vital Signs: 04:56 BP 134 / 87; Pulse 91; Resp 18; Temp 98.8; Pulse Ox 98% on R/A; Weight 95.25 kg; Height aa1 5 ft. 5 in. (165.10 cm); Pain 10/10; 05:45 BP 120 / 74; Pulse 88; Resp 18; Pulse Ox 99% on R/A; aa1 06:39 BP 134 / 88; Pulse 82; Resp 18; Pulse Ox 100% on R/A; aa1 07:22 BP 125 / 77; Pulse 85; Resp 17; Pulse Ox 99% on R/A; Pain 5/10; rb1 04:56 Body Mass Index 34.95 (95.25 kg, 165.10 cm) aa1 MDM: 04:48 Patient medically screened. [facility] 08/07 04:52 Order name: Chest Single View XRAY [facility] 08/07 05:13 Order name: Abdomen EDSD 08/07 05:14 Order name: Basic Metabolic Panel; Complete Time: 05:49 EDSD 08/07 05:14 Order name: Liver (Hepatic) Function; Complete Time: 05:49 EDMS 08/07 05:14 Order name: Lipase; Complete Time: 05:49 EDSD 08/07 05:14 Order name: CBC with Automated Diff; Complete Time: 05:49 [facility] 08/07 07:29 Order name: Urine Dipstick--Ancillary (enter results) 08/07 04:52 Order name: IV Saline Lock; Complete Time: 05:15 [facility] 08/07 04:52 Order name: Labs collected and sent; Complete Time: 05:15 [facility] 08/07 04:52 Order name: Urine Dipstick-Ancillary (obtain specimen); Complete Time: 07:19 [facility] 08/07 05:17 Order name: Chest Single View; Complete Time: 07:17 EDMS Administered Medications: 05:14 Drug: NS 0.9% 1000 ml Route: IV; Rate: 1 bolus; Site: right forearm; jb4 06:40 Drug: Flagyl 500 mg Volume: 100 ml; Route: IVPB; Rate: 200 ml/hr; Infused Over: 30 aa1 mins; Site: right forearm; 07:00 Follow up: Response: No adverse reaction rb1 07:45 Follow up: IV Status: Completed infusion rb1 06:41 Drug: Cipro 400 mg Volume: 200 ml; Route: IVPB; Infused Over: 60 mins; Site: right aa1 forearm; 07:00 Follow up: Response: No adverse reaction rb1 07:45 Follow up: IV Status: Completed infusion rb1 Disposition: 08/07/18 07:19 Discharged to Home. Impression: Abdominal tenderness - mild enteritis, non specific prominence of mesenteric lymph nodes. - Condition is Stable. - Discharge Instructions: Abdominal Pain, Adult, Nausea and Vomiting, Adult, Abdominal Pain, Adult, Asca-ol-Adum. - Prescriptions for Bentyl 20 mg Oral Tablet - take 1 tablet by ORAL route every 6 hours As needed; 20 tablet. Pepcid 20 mg Oral Tablet - take 1 tablet by ORAL route every 12 hours for 10 days; 20 tablet. Zofran 4 mg Oral Tablet - take 1 tablet by ORAL route every 12 hours As needed; 20 tablet. Flagyl 500 mg Oral Tablet - take 1 tablet by ORAL route every 8 hours for 10 days; 21 tablet. Cipro 500 mg Oral Tablet - take 1 tablet by ORAL route every 12 hours for 7 days; 14 tablet. - Medication Reconciliation Form, Thank You Letter, Antibiotic Education, Prescription Opioid Use form. - Follow up: Private Physician; When: 2 - 3 days; Reason: Recheck today's complaints, Continuance of care, Re-evaluation by your physician. Follow up: Yvrose Sahni; When: 2 - 3 days; Reason: Recheck today's complaints, Re-evaluation by your physician. - Problem is new. - Symptoms have improved. Signatures: Dispatcher [employer] EDCeli Dawson, RN RN aa1 Pradip Damico MD MD cha Barber, Rebecca, RN RN rb1 Gil Klein RN RN jb4 Corrections: (The following items were deleted from the chart) 07:14 07:14 Urine Culture+BA.LAB.BRZ ordered. EDMS EDMS 07:18 07:14 BASIC METABOLIC PANEL+C.LAB.BRZ ordered. EDMS EDMS 07:18 07:14 CBC+H.LAB.BRZ ordered. EDMS EDMS 07:18 07:14 Creatinine for Radiology+C.LAB.BRZ ordered. EDMS EDMS 07:18 07:14 HEPATIC FUNCTION+C.LAB.BRZ ordered. EDMS EDMS 07:18 07:14 LIPASE+C.LAB.BRZ ordered. EDMS EDMS 07:50 07:19 08/07/2018 07:19 Discharged to Home. Impression: Abdominal tenderness - mild rb1 enteritis, non specific prominence of mesenteric lymph nodes. Condition is Stable. Discharge Instructions: Abdominal Pain, Adult, Nausea and Vomiting, Adult, Abdominal Pain, Adult, Bwta-[id number]-Abbu. Prescriptions for Bentyl 20 mg Oral Tablet - take 1 tablet by ORAL route every 6 hours As needed; 20 tablet, Pepcid 20 mg Oral Tablet - take 1 tablet by ORAL route every 12 hours for 10 days; 20 tablet, Zofran 4 mg Oral Tablet - take 1 tablet by ORAL route every 12 hours As needed; 20 tablet, Flagyl 500 mg Oral Tablet - take 1 tablet by ORAL route every 8 hours for 10 days; 21 tablet, Cipro 500 mg Oral Tablet - take 1 tablet by ORAL route every 12 hours for 7 days; 14 tablet. and Forms are Medication Reconciliation Form, Thank You Letter, Antibiotic Education, Prescription Opioid Use. Follow up: Private Physician; When: 2 - 3 days; Reason: Recheck today's complaints, Continuance of care, Re-evaluation by your physician. Follow up: Yvrose Sahni; When: 2 - 3 days; Reason: Recheck today's complaints, Re-evaluation by your physician. Problem is new. Symptoms have improved. mary
[2018-08-07 07:55] VITALS: TEMP 98.8
[2018-08-07 07:59] VITALS: BP 125/77; O2SAT 99
--- NOTE | 2018-08-07 08:39 | RAD REPORT ---
EXAM DESCRIPTION: CT - Abdomen Pelvis W Contrast - 08/07/2018 8:09 am CLINICAL HISTORY: Right-sided abdominal pain A preliminary report was provided at the time of the study and reviewed prior to final report. COMPARISON: None. TECHNIQUE: Biphasic, helical CT imaging of the abdomen and pelvis was performed following 100 ml non -ionic IV contrast. Oral contrast was given. All CT scans are performed using dose optimization technique as appropriate and may include automated exposure control or mA/KV adjustment according to patient size. FINDINGS: No suspicious findings in the lung bases. The liver, spleen, and pancreas show no suspicious findings. Gallbladder and biliary tree are also wi thout suspicious finding. Symmetric renal function is seen with no hydronephrosis or suspicious renal mass. No pyelonephritis o r acute parenchymal process. No bladder abnormalities. No adrenal abnormalities. No suspicious stomach or small bowel finding. Patient has small mesenteric lymph nodes present. No di lated colon or acute colon process seen. No free air, free fluid or inflammatory stranding. No keesha ia, mass or bulky lymphadenopathy. No suspicious bony findings. IMPRESSION: Contrast enhanced CT abdomen and pelvis showing no emergent finding. Small mesenteric lymph nodes are present and could indicate a mesenteric adenitis or nonspecific ente ritis.
[2018-08-07 11:04] LABS: Urine Blood NEGATIVE (NEG); Urine Glucose NEGATIVE (NEG); Urine Protein NEGATIVE (NEG); Urine Specific Gravity 1.005 (1.005-1.030); Urine pH 5.5 (5.0-7.0)
== END 2018-08-07 07:50 | disposition home or self-care (01) ==
LOC: ER 04:36
DX: K52.9 Noninfective gastroenteritis and colitis, unspecified (principal); R50.9 Fever, unspecified
CPT/HCPCS: 36415; 71045; 74177; 80048; 80076; 81003; 83690; 85025; J0744; J7030; Q9967

== ENCOUNTER 2019-03-02 08:33 | Emergency (ER) | payer BC, SELFPAY ==
[2019-03-02] MEDS ORDERED: IBUPROFEN 400 MG TAB ONE (08:59)
--- NOTE | 2019-03-02 09:47 | RAD REPORT ---
EXAM DESCRIPTION: RAD - Ankle Right 3 View - 03/02/2019 9:13 am CLINICAL HISTORY: Pain;Swelling COMPARISON: No comparisons FINDINGS: Moderate soft tissue swelling is seen along the lateral aspect of the ankle. No fracture s een. Small plantar calcaneal spur.
--- NOTE | 2019-03-02 09:57 | ER ---
Nurse's Notes [facility] Name: Mateo Gilliam Age: 33 yrs Sex: Male : 1985 Arrival Date: 03/02/2019 Time: 08:36 Bed 12 Private MD: Diagnosis: Sprain of ankle Presentation: 03/02 08:37 Presenting complaint: Patient states: i hurt my R ankle last night on a curb and now hj its swollen, denies fall and hitting head or LOC;. Transition of care: patient was not received from another setting of care. Onset of symptoms was March 02, 2019. Risk Assessment: Do you want to hurt yourself or someone else? Patient reports no desire to harm self or others. Initial Sepsis Screen: Does the patient meet any 2 criteria? No. Patient's initial sepsis screen is negative. Does the patient have a suspected source of infection? No. Patient's initial sepsis screen is negative. Care prior to arrival: None. 08:37 Method Of Arrival: Ambulatory 08:37 Acuity: BONITA 4 hj Triage Assessment: 10:05 General: Appears in no apparent distress. uncomfortable, Behavior is calm, cooperative, hj appropriate for age. Pain: Complains of pain in right ankle. Musculoskeletal: Reports pain in right ankle. Historical: - Allergies: 08:39 No Known Allergies; hj - Home Meds: 08:39 None [Active]; hj - PMHx: 08:39 None; hj - PSHx: 08:39 None; hj - Immunization history:: Adult Immunizations up to date. - Social history:: Smoking status: Patient/guardian denies using tobacco, Patient/guardian denies using alcohol. - Ebola Screening: : Patient negative for fever greater than or equal to 101.5 degrees Fahrenheit, and additional compatible Ebola Virus Disease symptoms Patient denies exposure to infectious person Patient denies travel to an Ebola-affected area in the 21 days before illness onset. Screenin:05 Abuse screen: Denies threats or abuse. Denies injuries from another. Nutritional hj screening: No deficits noted. Tuberculosis screening: No symptoms or risk factors identified. Fall Risk None identified. Vital Signs: 08:39 BP 140 / 85; Pulse 112; Resp 18; Temp 97.6(TE); Pulse Ox 100% on R/A; Weight 99.79 kg; hj Height 5 ft. 5 in. (165.10 cm); Pain 8/10; 08:39 Body Mass Index 36.61 (99.79 kg, 165.10 cm) hj ED Course: 08:36 Patient arrived in ED. rg4 08:38 Triage completed. hj 08:39 Arm band placed on right wrist. hj 08:48 Park Rosenthal FNP-C [facility]. snw 08:48 Jay Burnett MD is Attending Physician. snw 09:14 Ankle Right 3 View XRAY In Process Unspecified. EDMS 09:56 Jony Rogel MD is Referral Physician. snw 10:06 Patient has correct armband on for positive identification. Bed in low position. Call hj light in reach. Side rails up X 1. Adult w/ patient. 10:06 No provider procedures requiring assistance completed. Patient did not have IV access hj during this emergency room visit. Administered Medications: 08:55 Drug: Motrin 400 mg Route: PO; hj 09:02 Follow up: Response: No adverse reaction; Pain is decreased hj Outcome: 09:56 Discharge ordered by . snw 10:06 Discharged to home via wheelchair, with R ankle aircast hj 10:06 Condition: stable 10:06 Discharge instructions given to patient, family, Instructed on discharge instructions, follow up and referral plans. medication usage, Demonstrated understanding of instructions, follow-up care, medications, Prescriptions given X 2. 10:06 Patient left the ED. Signatures: Dispatcher [employer] EDIA Park Rosenthal FNP-C [employer] Elieser Almendarez RN RN Zenia Grier rg4
--- NOTE | 2019-03-02 09:57 | EDPHYS ---
Physician Documentation [facility] Name: Mateo Gilliam Age: 33 yrs Sex: Male : 1985 Arrival Date: 03/02/2019 Time: 08:36 Bed 12 Private MD: ED Physician Jay Burnett HPI: 03/02 08:53 This 33 yrs old Male presents to ER via Ambulatory with complaints of Ankle snw Injury. 08:53 The patient presents with decreased range of motion, an injury, pain. The complaints snw affect the right ankle. Onset: The symptoms/episode began/occurred suddenly, last night. Context: The problem was sustained at home, resulted from a mis-step by the patient, on a curb, The mechanism of injury involved inversion of the affected ankle. The patient can partially bear weight on the affected extremity. the patient is able to ambulate. Associated signs and symptoms: Pertinent positives: swelling. Severity of symptoms: At their worst the symptoms were mild. The patient has experienced a previous episode. It is unknown whether or not the patient has recently seen a physician. Historical: - Allergies: 08:39 No Known Allergies; hj - Home Meds: 08:39 None [Active]; hj - PMHx: 08:39 None; hj - PSHx: 08:39 None; hj - Immunization history:: Adult Immunizations up to date. - Social history:: Smoking status: Patient/guardian denies using tobacco, Patient/guardian denies using alcohol. - Ebola Screening: : Patient negative for fever greater than or equal to 101.5 degrees Fahrenheit, and additional compatible Ebola Virus Disease symptoms Patient denies exposure to infectious person Patient denies travel to an Ebola-affected area in the 21 days before illness onset. ROS: 08:53 Constitutional: Negative for fever, chills, and weight loss, Eyes: Negative for injury, snw pain, redness, and discharge, ENT: Negative for injury, pain, and discharge, Neck: Negative for injury, pain, and swelling, Cardiovascular: Negative for chest pain, palpitations, and edema, Respiratory: Negative for shortness of breath, cough, wheezing, and pleuritic chest pain, Abdomen/GI: Negative for abdominal pain, nausea, vomiting, diarrhea, and constipation, Back: Negative for injury and pain, : Negative for injury, bleeding, discharge, and swelling, Skin: Negative for injury, rash, and discoloration, Neuro: Negative for headache, weakness, numbness, tingling, and seizure. 08:53 MS/extremity: Positive for decreased range of motion, pain, swelling, of the right ankle. Exam: 08:53 Constitutional: This is a well developed, well nourished patient who is awake, alert, snw and in no acute distress. Head/Face: Normocephalic, atraumatic. Eyes: Pupils equal round and reactive to light, extra-ocular motions intact. Lids and lashes normal. Conjunctiva and sclera are non-icteric and not injected. Cornea within normal limits. Periorbital areas with no swelling, redness, or edema. ENT: Nares patent. No nasal discharge, no septal abnormalities noted. Tympanic membranes are normal and external auditory canals are clear. Oropharynx with no redness, swelling, or masses, exudates, or evidence of obstruction, uvula midline. Mucous membranes moist. Neck: Trachea midline, no thyromegaly or masses palpated, and no cervical lymphadenopathy. Supple, full range of motion without nuchal rigidity, or vertebral point tenderness. No Meningismus. Chest/axilla: Normal chest wall appearance and motion. Nontender with no deformity. No lesions are appreciated. Cardiovascular: Regular rate and rhythm with a normal S1 and S2. No gallops, murmurs, or rubs. Normal PMI, no JVD. No pulse deficits. Respiratory: Lungs have equal breath sounds bilaterally, clear to auscultation and percussion. No rales, rhonchi or wheezes noted. No increased work of breathing, no retractions or nasal flaring. Abdomen/GI: Soft, non-tender, with normal bowel sounds. No distension or tympany. No guarding or rebound. No evidence of tenderness throughout. Back: No spinal tenderness. No costovertebral tenderness. Full range of motion. Skin: Warm, dry with normal turgor. Normal color with no rashes, no lesions, and no evidence of cellulitis. Neuro: Awake and alert, GCS 15, oriented to person, place, time, and situation. Cranial nerves II-XII grossly intact. Motor strength 5/5 in all extremities. Sensory grossly intact. Cerebellar exam normal. Normal gait. Psych: Awake, alert, with orientation to person, place and time. Behavior, mood, and affect are within normal limits. 08:53 Musculoskeletal/extremity: Extremities: grossly normal except: ROM: no acute changes, Circulation is intact in all extremities. Sensation intact. Compartment Syndrome exam of affected extremity: is normal. Joints: All joints are normal except the right ankle displays pain at rest, painful range of motion, swelling, tenderness. Vital Signs: 08:39 BP 140 / 85; Pulse 112; Resp 18; Temp 97.6(TE); Pulse Ox 100% on R/A; Weight 99.79 kg; hj Height 5 ft. 5 in. (165.10 cm); Pain 8/10; 08:39 Body Mass Index 36.61 (99.79 kg, 165.10 cm) hj MDM: 08:50 Patient medically screened. snw 09:58 Data reviewed: vital signs, nurses notes. Data interpreted: Pulse oximetry: on room air snw is 100 %. Interpretation: normal. Counseling: I had a detailed discussion with the patient and/or guardian regarding: the historical points, exam findings, and any diagnostic results supporting the discharge/admit diagnosis, the presence of at least one elevated blood pressure reading (>120/80) during this emergency department visit, radiology results, the need for outpatient follow up, to return to the emergency department if symptoms worsen or persist or if there are any questions or concerns that arise at home. Special discussion: I have referred the patient to see his PCP for further evaluation of high blood pressure. Based on the history and exam findings, there is no indication for further emergent testing or inpatient evaluation. I discussed with the patient/guardian the need to see the orthopedic surgeon for further evaluation of the symptoms. I discussed with the patient/guardian the need to see the primary care provider for further evaluation of the symptoms. 08 08:53 Order name: Ankle Right 3 View XRAY; Complete Time: 10:00 snw 08 08:53 Order name: Ice pack; Complete Time: 08:55 snw 03/02 09:53 Order name: Aircast Ankle Splint; Complete Time: 10:01 snw Administered Medications: 08:55 Drug: Motrin 400 mg Route: PO; 09:02 Follow up: Response: No adverse reaction; Pain is decreased Disposition: 10:55 Co-signature as Attending Physician, Jay Burnett MD. rn Disposition: 03/02/19 09:56 Discharged to Home. Impression: Sprain of ankle. - Condition is Stable. - Discharge Instructions: Elastic Bandage and RICE, Ankle Sprain, Cryotherapy, Heat Therapy. - Prescriptions for Diclofenac Sodium 75 mg Oral Tablet Sustained Release - take 1 tablet by ORAL route 2 times per day; 30 tablet. orphenadrine citrate 100 mg Oral Tablet Sustained Release - take 1 tablet by ORAL route 2 times per day As needed; 20 tablet. - Work release form, Medication Reconciliation Form, Thank You Letter, Antibiotic Education, Prescription Opioid Use form. - Follow up: Jony Rogel MD; When: 2 - 3 days; Reason: Recheck today's complaints, Continuance of care. Signatures: Dispatcher [employer] EDMS Park Rosenthal, RESPIRATORY ASSISTANT-C RESPIRATORY ASSISTANT-Csnw Jay Burnett MD MD rn Joaquin, Henry, RN RN hj Corrections: (The following items were deleted from the chart) 10:06 09:56 03/02/2019 09:56 Discharged to Home. Impression: Sprain of ankle. Condition is hj Stable. Forms are Medication Reconciliation Form, Thank You Letter, Antibiotic Education, Prescription Opioid Use. Follow up: Jony Rogel; When: 2 - 3 days; Reason: Recheck today's complaints, Continuance of care. snw
[2019-03-02 10:26] VITALS: BP 140/85; TEMP 97.6; O2SAT 100
== END 2019-03-02 10:06 | disposition home or self-care (01) ==
LOC: ER 08:33
DX: S93.401A Sprain of unspecified ligament of right ankle, initial encounter (principal); X50.1XXA Overexertion from prolonged static or awkward postures, initial encounter; Y92.480 Sidewalk as the place of occurrence of the external cause
CPT/HCPCS: 99283

== ENCOUNTER 2019-08-06 18:44 | Emergency (ER) | payer BC ==
[2019-08-06 20:12] LABS: Urine Blood NEGATIVE (NEG); Urine Glucose NEGATIVE (NEG); Urine Protein NEGATIVE (NEG); Urine Specific Gravity 1.025 (1.005-1.030); Urine pH 5.5 (5.0-7.0)
--- NOTE | 2019-08-06 20:26 | ER ---
Nurse's Notes [facility] Name: Mateo Gilliam Age: 34 yrs Sex: Male : 1985 Arrival Date: 08/06/2019 Time: 18:46 Bed 19 Private MD: Diagnosis: Hydrocele, unspecified Presentation: 08/06 19:01 Presenting complaint: Patient states: groin pain for a month. Transition of care: patient was not received from another setting of care. Onset of symptoms was May 2019. Risk Assessment: Do you want to hurt yourself or someone else? Patient reports no desire to harm self or others. Initial Sepsis Screen: Does the patient meet any 2 criteria? No. Patient's initial sepsis screen is negative. Does the patient have a suspected source of infection? No. Patient's initial sepsis screen is negative. Care prior to arrival: None. 19:01 Method Of Arrival: Ambulatory 19:01 Acuity: BONITA 4 Triage Assessment: 19:02 General: Appears in no apparent distress. comfortable, Behavior is calm, cooperative, ch appropriate for age. Pain: Complains of pain in pelvis. Historical: - Allergies: 19:02 No Known Allergies; ch - Home Meds: 19:02 None [Active]; ch - PMHx: 19:02 None; ch - PSHx: 19:02 None; - Immunization history:: Adult Immunizations up to date. - Social history:: Smoking status: Patient/guardian denies using tobacco, Patient/guardian denies using alcohol, street drugs. - Ebola Screening: : Patient negative for fever greater than or equal to 101.5 degrees Fahrenheit, and additional compatible Ebola Virus Disease symptoms Patient denies exposure to infectious person Patient denies travel to an Ebola-affected area in the 21 days before illness onset No symptoms or risks identified at this time. Screenin:37 Abuse screen: Denies threats or abuse. Denies injuries from another. Nutritional screening: No deficits noted. Tuberculosis screening: No symptoms or risk factors identified. Fall Risk None identified. Assessment: 20:37 Reassessment: Patient appears in no apparent distress at this time. Patient and/or ch family updated on plan of care and expected duration. Pain level reassessed. Patient is alert, oriented x 3, equal unlabored respirations, skin warm/dry/pink. Patient states feeling better. Patient states symptoms have improved. General: Appears in no apparent distress. comfortable, Behavior is calm, cooperative, appropriate for age. Vital Signs: 19:02 Pulse 88; Resp 16; Temp 98.8; Pulse Ox 99% ; Weight 108.86 kg; Height 5 ft. 5 in. ch (165.10 cm); Pain 9/10; 19:03 BP 140 / 92; ch 20:37 BP 136 / 86; Pulse 86; Resp 14; Temp 98.8; Pulse Ox 99% on R/A; Pain 6/10; ch 19:02 Body Mass Index 39.94 (108.86 kg, 165.10 cm) ED Course: 18:46 Patient arrived in ED. as 19:01 Marixa Piña, IVAN is Primary Nurse. 19:02 Triage completed. 19:02 Arm band placed on left wrist. Patient placed in an exam room. 19:03 Roberto Varela F[facility]-C [facility]. la1 19:03 Jay Burnett MD is Attending Physician. la1 20:20 US Scrotum Testicles In Process Unspecified. EDMS 20:37 No apparent distress. Resting quietly. ch 20:37 Patient has correct armband on for positive identification. Bed in low position. Call light in reach. Side rails up X 1. Adult w/ patient. 20:37 No provider procedures requiring assistance completed. Patient did not have IV access during this emergency room visit. Administered Medications: No medications were administered Outcome: 20:25 Discharge ordered by . la1 20:37 Discharged to home ambulatory, with family. 20:37 Condition: stable 20:37 Discharge instructions given to patient, family, Instructed on discharge instructions, follow up and referral plans. Demonstrated understanding of instructions, follow-up care. 20:38 Patient left the ED. Signatures: Dispatcher [employer] EDNV Marixa Piña, IVAN RN Geovanna Agrawal Lee, FNP-C FNP-[facility]
--- NOTE | 2019-08-06 20:26 | EDPHYS ---
Physician Documentation [facility] Name: Mateo Gilliam Age: 34 yrs Sex: Male : 1985 Arrival Date: 08/06/2019 Time: 18:46 Bed 19 Private MD: ED Physician Jay Burnett HPI: 08/06 19:38 This 34 yrs old Male presents to ER via Ambulatory with complaints of Groin la1 Pain, Leg Pain - numbness. 19:38 Onset: The symptoms/episode began/occurred 1 month(s) ago. Associated signs and la1 symptoms: Pertinent positives: left leg pain. Modifying factors: The patient symptoms are alleviated by nothing, the patient symptoms are aggravated by movement. The patient has experienced a previous episode. pt reports pain that starts behind the left testicle and down the left leg. Historical: - Allergies: 19:02 No Known Allergies; ch - Home Meds: 19:02 None [Active]; ch - PMHx: 19:02 None; ch - PSHx: 19:02 None; ch - Immunization history:: Adult Immunizations up to date. - Social history:: Smoking status: Patient/guardian denies using tobacco, Patient/guardian denies using alcohol, street drugs. - Ebola Screening: : Patient negative for fever greater than or equal to 101.5 degrees Fahrenheit, and additional compatible Ebola Virus Disease symptoms Patient denies exposure to infectious person Patient denies travel to an Ebola-affected area in the 21 days before illness onset No symptoms or risks identified at this time. ROS: 19:39 Constitutional: Negative for fever, chills, and weight loss, Eyes: Negative for injury, la1 pain, redness, and discharge, ENT: Negative for injury, pain, and discharge, Cardiovascular: Negative for chest pain, palpitations, and edema, Respiratory: Negative for shortness of breath, cough, wheezing, and pleuritic chest pain, Abdomen/GI: Negative for abdominal pain, nausea, vomiting, diarrhea, and constipation, Back: Negative for injury and pain. 19:39 Skin: Negative for injury, rash, and discoloration. 19:39 : Positive for testicular pain 19:39 MS/extremity: Positive for pain, of the left leg. Exam: 19:40 Constitutional: This is a well developed, well nourished patient who is awake, alert, la1 and in no acute distress. Head/Face: Normocephalic, atraumatic. Eyes: Pupils equal round and reactive to light, extra-ocular motions intact. Periorbital areas with no swelling, redness, or edema. ENT: . Mucous membranes moist. Neck: Trachea midline, Chest/axilla: Normal chest wall appearance and motion. Nontender with no deformity. No lesions are appreciated. Cardiovascular: Regular rate and rhythm with a normal S1 and S2. No gallops, murmurs, or rubs. Normal PMI, no JVD. No pulse deficits. Respiratory: Lungs have equal breath sounds bilaterally, clear to auscultation No rales, rhonchi or wheezes noted. No increased work of breathing, no retractions or nasal flaring. Abdomen/GI: Soft, non-tender, with normal bowel sounds. No distension or tympany. No guarding or rebound. No evidence of tenderness throughout. Back: No spinal tenderness. No costovertebral tenderness. Full range of motion. Vital Signs: 19:02 Pulse 88; Resp 16; Temp 98.8; Pulse Ox 99% ; Weight 108.86 kg; Height 5 ft. 5 in. ch (165.10 cm); Pain 9/10; 19:03 BP 140 / 92; ch 20:37 BP 136 / 86; Pulse 86; Resp 14; Temp 98.8; Pulse Ox 99% on R/A; Pain 6/10; ch 19:02 Body Mass Index 39.94 (108.86 kg, 165.10 cm) ch MDM: 19:03 Patient medically screened. la1 20:24 Data reviewed: vital signs, nurses notes, radiologic studies, and as a result, I will la1 discharge patient. Data interpreted: Pulse oximetry: on room air is 100 %. Interpretation: normal. Counseling: I had a detailed discussion with the patient and/or guardian regarding: the historical points, exam findings, and any diagnostic results supporting the discharge/admit diagnosis, the presence of at least one elevated blood pressure reading (>120/80) during this emergency department visit, lab results, radiology results, the need for outpatient follow up, a urologist. Special discussion: I discussed with the patient/guardian that the patient's current presentation does not indicate dosing of antibiotics. They should follow-up with their primary care provider and return if the symptoms persist or progress. 08/06 20:04 Order name: Urine Dipstick--Ancillary (enter results) mw2 08/06 19:24 Order name: US Scrotum Testicles la1 08/06 19:20 Order name: Urine Dipstick-Ancillary (obtain specimen); Complete Time: 20:37 la1 Administered Medications: No medications were administered Disposition: 08/06/19 20:25 Discharged to Home. Impression: Hydrocele, unspecified. - Condition is Stable. - Discharge Instructions: Testicular Self-Exam, Hydrocele, Adult. - Medication Reconciliation Form, Thank You Letter form. - Follow up: Private Physician; When: 2 - 3 days; Reason: Recheck today's complaints, Re-evaluation by your physician. - Problem is new. - Symptoms are unchanged. Addendum: 08/11/2019 09:33 Co-signature as Attending Physician, Jay Burnett MD. r n Signatures: Dispatcher [employer] EDMS Marixa Piña RN RN ch Nieto, Roman, MD MD rn Nichole, Roberto, CYBER SECURITY SPECIALIST-C CYBER SECURITY SPECIALIST-Cla1 Corrections: (The following items were deleted from the chart) 08/06 20:38 20:25 08/06/2019 20:25 Discharged to Home. Impression: Hydrocele, unspecified. ch Condition is Stable. Forms are Medication Reconciliation Form, Thank You Letter, Antibiotic Education, Prescription Opioid Use. Follow up: Private Physician; When: 2 - 3 days; Reason: Recheck today's complaints, Re-evaluation by your physician. Problem is new. Symptoms are unchanged. la1
--- NOTE | 2019-08-06 20:36 | RAD REPORT ---
EXAM DESCRIPTION: US - Scrotum Testicles - 08/06/2019 8:19 pm CLINICAL HISTORY: Testicular pain COMPARISON: Scrotal ultrasound January 2017 FINDINGS: Testicular tissue is homogeneous. No testicular lesion seen. Doppler evaluation shows norm al symmetric blood flow within the testicular tissue. No epididymis enlargement or hyperemia. A small left hydrocele is present. No hernia identified. IMPRESSION: Small left hydrocele. Exam is otherwise unremarkable.
[2019-08-06 21:03] VITALS: TEMP 98.8; O2SAT 99
[2019-08-06 21:06] VITALS: BP 136/86
== END 2019-08-06 20:38 | disposition home or self-care (01) ==
LOC: ER 18:44
DX: N43.3 Hydrocele, unspecified (principal)
CPT/HCPCS: 76870; 81003; 99283

== ENCOUNTER 2020-07-03 08:31 | Emergency (ER) | payer BC, SELFPAY ==
--- OUTSIDE RECORDS SUMMARY | 2020-07-03 08:33 | XMS REPORT | Continuity of Care Document ---
:1985 Author Organization [facility] t Address [address] [place] [address] Care Team Providers Name Role Phone To DO Attending Clinician Problems This patient has no known problems. Allergies, Adverse Reactions, Alerts This patient has no known allergies or adverse reactions. Medications This patient has no known medications. Procedures This patient has no known procedures. Encounters Start End Encounter Admission Attending Care Care Encounter Source Date/Time Date/Time Type Type Clinicians Facility Department ID 2020-05-28 2020-05-28 Emergency [facility] [id number] 09:39:00 11:40:00 Jewel Whitaker [id number] [place] [id number] [place] [id number] 2020-05-25 2020-05-25 Outpatient [facility] [id number] [facility] St 00:00:00 00:00:00 Daryl Berry ent Clinics Results This patient has no known results.
--- OUTSIDE RECORDS SUMMARY | 2020-07-03 08:33 | XMS REPORT ---
:1985 Author Organization [facility] Address [address] [place] [address] Care Team Providers Name Role Phone Tafoya Tereso Unavailable [phone] PROBLEMS No Information ALLERGIES No Known Allergies ENCOUNTERS from 1985 to 2020-05-25 Encounter Location Date Provider Diagnosis [place] [address] [facility] May, Tereso Tafoya Left ing uinal pain Specialty/Urology [address], R10.3 2 ; [place] [id number] pain in male R 10.2 and Left leg weakness R29.89 8 IMMUNIZATIONS No Information SOCIAL HISTORY Tobacco Use: Social History Observation Description Date Details (start date - stop date) Current Smoker Sex Assigned At : Social History Observation Description Sex Assigned At Unknown Alcohol Screen Question Answer Notes Did you have a drink containing alcohol in the past year? Ye s Points 3 Interpretation Negative How many drinks did you have on a typical day when you were 7 to 9 (3 points) drinking in the past year? Tobacco Use/Smoking Question Answer Notes Are you a current smoker How often do you smoke cigarettes? every day REASON FOR REFERRAL No Information VITAL SIGNS Height 65 in May, Weight 254 lbs May, Temperature 97.3 degrees Fahrenheit May, BMI 42.26 kg/m2 May, Oximetry 95 % May, Blood pressure systolic 156 mm Hg May, Blood pressure diastolic 96 mm Hg May, MEDICATIONS No Information PROCEDURES No Information RESULTS No Results REASON FOR VISIT SCROTUM PAIN/ER MEDICAL (GENERAL) HISTORY Type Description Date Medical History SMALL LEFT HYDROCELE Goals Section No Information Health Concerns No Information MEDICAL EQUIPMENT No Information MENTAL STATUS No Information FUNCTIONAL STATUS No Information ASSESSMENTS Encounter Date Diagnosis Notes May, Left inguinal pain (ICD-10 - R10.32) May, Left leg weakness (ICD-10 - R29.898) May, Perineal pain in male (ICD-10 - R10.2) PLAN OF TREATMENT Treatment Notes Test Name Order Date BMP 2020-05-25 URINALYSIS AUTO W/O SCOPE ([id number]) 2020-05-25 CTABD PELVIS W CONTRAST 2020-05-25
--- OUTSIDE RECORDS SUMMARY | 2020-07-03 08:34 | XMS REPORT | Summary of Care ---
:1985 Author Organization [facility] - [facility] Address [address] [place] [id number] Care Team Providers Name Role Phone Pcp, Does Not Have A Primary Care Provider Reason for Referral MRI/CAT Scan (Routine) Status Reason Specialty Diagnoses / Referred By Referred To Procedures Contact Contact New Request Diagnostic Diagnoses Flank pain Jewel To, Radiology Procedures CT ABDOMEN PELVIS WO CONTRAST DO [address] [place] [address] [place] [address] Reason for Visit Reason Comments Groin Pain right Auth/Cert Status Reason Specialty Diagnoses / Referred By Referred To Procedures Contact Contact Emergency Medicine [facility] Em ergency Dept [address] [place] [address] Fax: Encounter Details Date Type Department Care Team Description 05/28/2020 Emergency ADC-Emergency Jewel To DO Flank pain (Primary Dx); Department [address] [place] [address] Bilateral groin pain [address] [facility] RT [address] [place] [address] [place] [address] [phone] Allergies No Known Allergiesdocumented as of this encounter (statuses as of 05/28/2020) Medications Medication Sig Dispensed Refills Start Date End Date Status traMADOL (ULTRAM) 50 mg Take 1 Tab by 15 Tab 0 06/28/2015 Active tablet mouth every 8 (eight) hours as needed for Pain (scale 4-6). naproxen sodium Take 1 tablet 30 tablet 0 05/28/2020 Active (ANAPROX DS) 550 mg by mouth 2 tabletIndications: (two) times Bilateral groin pain daily with meals. methocarbamoL 500 mg Take 1 tablet 15 tablet 0 05/28/202005/22 Active tabletIndications: by mouth 3 Bilateral groin pain (three) times daily for 5 days. documented as of this encounter (statuses as of 05/28/2020) Active Problems No known active problemsdocumented as of this encounter (statuses as of 05/28/2020) Social History Tobacco Use Types Packs/Day Years Used Date Never Assessed Sex Assigned at Date Recorded Not on file COVID-19 Exposure Response Date Recorded In the last month, have you been in contact with No / Unsure 05/28/2020 9:41 AM INSURANCE CHECKER someone who was confirmed or suspected to have Coronavirus / COVID-19? documented as of this encounter Last Filed Vital Signs Vital Sign Reading Time Taken Comments Blood Pressure 156/87 05/28/2020 9:45 AM INSURANCE CHECKER Pulse 87 05/28/2020 9:45 AM INSURANCE CHECKER Temperature 36.8 C (98.3 F) 05/28/2020 9:45 AM INSURANCE CHECKER Respiratory Rate 16 05/28/2020 9:45 AM INSURANCE CHECKER Oxygen Saturation 99% 05/28/2020 9:45 AM INSURANCE CHECKER Inhaled Oxygen Concentration - - Weight 113.4 kg (250 lb) 05/28/2020 9:45 AM INSURANCE CHECKER Height 165.1 cm (5' 5") 05/28/2020 9:45 AM INSURANCE CHECKER Body Mass Index 41.6 05/28/2020 9:45 AM INSURANCE CHECKER documented in this encounter Discharge Instructions Jewel Low DO - 05/28/2020 DIAGNOSIS Diagnoses that have been ruled out: None Diagnoses that are still under consideration: None Final diagnoses: Flank pain Bilateral groin pain NO LIFE-THREATENING FINDINGS ON TODAY'S EXAM. PROCEDURES IN THE ER TODAY: Orders Placed This Encounter Procedures CT ABDOMEN PELVIS WO CONTRAST BLOOD CULTURE SCREEN BLOOD CULTURE SCREEN CBC WITH DIFF COMP. METABOLIC PANEL (99904) URINALYSIS URINE CULTURE MEDICATIONS ADMINISTERED IN THE ER TODAY AND DISCHARGE MEDICATIONS: Orders Placed This Encounter Medications ketorolac (TORADOL) injection 30 mg NaCl 0.9% (NS) bolus infusion 1,000 mL ondansetron (ZOFRAN (PF)) injection 4 mg FOLLOW-UP RECOMMENDATIONS: RECOMMEND FOLLOW-UP WITH A PRIMARY CARE PROVIDER OR SPECIALIST IN 2-5 DAYS, ESPECIALLY IF NO IMPROVEMENT IN SYMPTOMS. MAY FOLLOW-UP WITH A PROVIDER OF YOUR CHOICE, SUCH : 1. A PHYSICIAN OF YOUR CHOICE 2. [facility], . LOCATIONS IN [facility] 3. [facility], [address], [place]; [phone] OR, IF YOU WISH TO FOLLOW-UP WITHIN THE [facility], MAY TRY THESE OPTIONS (CLINIC APPOINTMENTS AVAILABLE ON [id number] BASIS): 1. SCHEDULE AN APPOINTMENT ONLINE AT [email or web address] 2. OR CALL THE [facility]ESS [facility]ENTER AT OR 3. OR CALL YOUR [facility] PHYSICIAN'S OFFICE DIRECTLY IF YOU ARE ALREADY AN ESTABLISHED [facility] PATIENT. RETURN TO ER FOR WORSENING OF SYMPTOMS. AttachmentsThe following attachments cannot be sent through Care Everywhere. Pain, Acute, Uncertain Cause (Omani)documented in this encounter ED Notes Vannessa Gonsales RN - 05/28/2020 9:42 AM CSTPatient states: "I went to the doctor because my left leg has been numb, I have pain in my groin area. I went recently because the pain switched to my right side. I can hardly stand up straight becausethe nerves shock me. " Jewel Trevino DO - 05/28/2020 9:35 AM CST EMERGENCY DEPARTMENT ENCOUNTER [facility] Patient Name: Mateo Gilliam Date of : 1985 34 year old Exam Room:TX3/TX3 Primary Care Physician: PATIENT DOES NOT HAVE A PCP Pre- Hospital Patient Escorted by: Self [9] Mode of Arrival: Personal means [1] EMS Treatment Prior to ED Arrival: PLASTER MECHANIC treatment: None Chief Complaint Chief Complaint Patient presents with Groin Pain right HPI 34-year-old male presenting with left and right inguinal pain. Patient states that it's been going on for several months. He went to his primary care provider and he told him that he needed to have a scan to evaluate for possible hernia. States that his pain started out on the left-hand side in the inguinal region then started moving down his H states now it is transferred to the right hand side and now associated with flank and groin pain. He denies any dysuria or hematuria. States that the pain ismoderate. No inciting events. He does state that lifting heavy objects makes it more painful. Past Medical History / Immunizations History reviewed. No pertinent past medical history. Tetanus received in last 5 years: Yes Childhood immunizations: Up-to-date Past Surgical History History reviewed. No pertinent surgical history. Allergies No Known Allergies Social History Substance & Sexual Activity No substance use or sexual activity history on file. Review of Systems Review of Systems Constitutional: Negative for activity change, appetite change, chills, diaphoresis and fever. HENT: Negative for sore throat and voice change. Eyes: Negative for pain and visual disturbance. Respiratory: Negative for cough, chest tightness and shortness of breath. Cardiovascular: Negative for chest pain and leg swelling. Gastrointestinal: Negative for abdominal pain, blood in stool, constipation and diarrhea. Genitourinary: Positive for flank pain. Negative for dysuria, urgency and difficulty urinating. Groin pain Musculoskeletal: Negative for back pain. Skin: Negative for color change, rash and wound. Neurological: Negative for dizziness and headaches. Hematological: Does not bruise/bleed easily. Physical Exam BP (!) 156/87 | Pulse 87 | Temp 36.8 C (98.3 F) (Oral) | Resp 16 | Ht 1.651 m (5' 5") | Wt 113.4 kg (250 lb) | SpO2 99% | BMI 41.60 kg/m Physical Exam Vitals signs and nursing note reviewed. Constitutional: Appearance: He is well-developed. HENT: Head: Normocephalic and atraumatic. Eyes: General: No scleral icterus. Conjunctiva/sclera: Conjunctivae normal. Pupils: Pupils are equal, round, and reactive to light. Neck: Musculoskeletal: Normal range of motion and neck supple. Vascular: No JVD. Cardiovascular: Rate and Rhythm: Normal rate and regular rhythm. Heart sounds: Normal heart sounds. Pulmonary: Effort: Pulmonary effort is normal. Breath sounds: Normal breath sounds. No stridor. Abdominal: General: Bowel sounds are normal. Palpations: Abdomen is soft. Hernia: There is no hernia in the left inguinal area or right inguinal area. Genitourinary: Penis: Uncircumcised. Scrotum/Testes: Normal. Cremasteric reflex is present. Musculoskeletal: Normal range of motion. Skin: General: Skin is warm and dry. Neurological: Mental Status: He is alert and oriented to person, place, and time. Psychiatric: Behavior: Behavior normal. Thought Content: Thought content normal. Labs Recent Results (from the past 24 hour(s)) CBC WITH DIFF Collection Time: 05/28/20 10:08 AM Result Value Ref Range WBC 7.66 4.20 - 10.70 10*3/L RBC 4.65 4.26 - 5.52 10*6/L HGB 13.9 12.2 - 16.4 g/dL HCT 39.6 38.4 - 49.3 % MCV 85.2 81.7 - 95.6 fL MCH 29.9 26.1 - 32.7 pg MCHC 35.1 (H) 31.2 - 35.0 g/dL RDW-SD 37.2 (L) 38.5 - 51.6 fL RDW-CV 12.0 (L) 12.1 - 15.4 % PLT 372 (H) 150 - 328 10*3/L MPV 9.9 9.8 - 13.0 fL NRBC/100 WBC 0.0 0.0 - 10.0 /100 WBCs NRBC x10^3 <0.01 10*3/L GRAN MAT (NEUT) % 64.7 % IMM GRAN % 0.70 % LYMPH % 25.5 % MONO % 6.9 % EOS % 1.4 % BASO % 0.8 % GRAN MAT x10^3(ANC) 4.96 1.99 - 6.95 10*3/uL IMM GRAN x10^3 0.05 0.00 - 0.06 10*3/uL LYMPH x10^3 1.95 1.09 - 3.23 10*3/uL MONO x10^3 0.53 0.36 - 1.02 10*3/uL EOS x10^3 0.11 0.06 - 0.53 10*3/uL BASO x10^3 0.06 0.01 - 0.09 10*3/uL COMP. METABOLIC PANEL ([id number]) Collection Time: 05/28/20 10:08 AM Result Value Ref Range NA 137 135 - 145 mmol/L K 4.4 3.5 - 5.0 mmol/L CL 104 98 - 108 mmol/L CO2 TOTAL 28 23 - 31 mmol/L AGAP 5 2 - 16 BUN 14 7 - 23 mg/dL GLUCOSE 104 70 - 110 mg/dL CREATININE 0.79 0.60 - 1.25 mg/dL TOTAL BILI 0.6 0.1 - 1.1 mg/dL CALCIUM 9.6 8.6 - 10.6 mg/dL T PROTEIN 7.8 6.3 - 8.2 g/dL ALBUMIN 4.4 3.5 - 5.0 g/dL ALK PHOS 76 34 - 122 U/L ALTv 86 (H) 5 - 50 U/L AST(SGOT) 49 (H) 13 - 40 U/L eGFR Calculation (Non-) 111.6 mL/min/1.73m2 eGFR Calculation () 135.3 mL/min/1.73m2 URINALYSIS Collection Time: 05/28/20 10:08 AM Result Value Ref Range APPEARANCE Clear Clear COLOR Yellow Yellow PH 5.0 4.8 - 8.0 SP GRAVITY 1.024 1.003 - 1.030 GLU U QUAL Normal Normal BLOOD Negative Negative KETONES Negative Negative PROTEIN Negative Negative UROBILIN Normal Normal BILIRUBIN Negative Negative NITRITE Negative Negative LEUK LYNDA Negative Negative RBC/HPF <1 0 - 3 HPF WBC/HPF 2 0 - 5 HPF BACTERIA Few (A) Negative MUCOUS Slight (A) Negative LPF SQ EPITH <1 HPF [facility] Encounter on 05/28/20 CT ABDOMEN PELVIS WO CONTRAST Narrative EXAM: CT ABDOMEN AND PELVIS WITHOUT CONTRAST HISTORY: Flank pain, stone disease suspected. COMPARISON: None. TECHNIQUE AND FINDINGS: Contiguous axial imaging from the level of the lung bases through the proximal thighs was performed without the intravenous administration of contrast. Coronal and sagittal reconstructions were obtained. FINDINGS: LOWER THORAX: A 4 mm left lower lobe solid pulmonary nodule is noted. Otherwise, the lungs bases are clear. LIVER: Enlarged measuring 21.8 cm in craniocaudal dimension. No focal hepatic lesions identified within limits of unenhanced technique. Mild diffuse hepatic steatosis. Normal contour. GALLBLADDER AND BILIARY TREE: Physiologically distended gallbladder without radiopaque cholelithiasis. SPLEEN: No splenomegaly. PANCREAS: No ductal dilation. ADRENAL GLANDS: No adrenal nodules. KIDNEYS: No hydronephrosis, stones, or contour deforming renal lesion. PERITONEUM AND RETROPERITONEUM: No free air or fluid. LYMPH NODES: No lymphadenopathy. GI TRACT: No dilation or abnormal wall thickening. Nondilated appendix containing trace amount of hyperattenuating material (for example on 2:93). PELVIS/BLADDER: Urinary bladder is underdistended limiting evaluation. No urinary bladder calculi. VESSELS: Unremarkable. BONES AND SOFT TISSUES: No suspicious lytic or sclerotic bony lesions. Impression No urinary system calculi. No hydronephrosis. No acute abdominal or pelvic abnormality. Hepatomegaly. Preliminary Report Dictated by Resident: Parker Ramos I, Michael Mclaughlin MD., have reviewed this study and agree with the above report. Orders and Treatments Orders Placed This Encounter Procedures CT ABDOMEN PELVIS WO CONTRAST BLOOD CULTURE SCREEN BLOOD CULTURE SCREEN CBC WITH DIFF COMP. METABOLIC PANEL (22724) URINALYSIS URINE CULTURE Orders Placed This Encounter Medications ketorolac (TORADOL) injection 30 mg NaCl 0.9% (NS) bolus infusion 1,000 mL ondansetron (ZOFRAN (PF)) injection 4 mg naproxen sodium (ANAPROX DS) 550 mg tablet methocarbamoL 500 mg tablet Procedures See ED Procedure Note Notes & MDM Patient was evaluated for an emergency medical condition related to Groin Pain (right ) . Differential diagnoses considered by presenting complaints but not limited to: Flank pain, kidney stone, hernia, sports hernia, ligament pain, infection, and others.. Labs:were ordered, and resulted, any relevant abnormalities were considered. Imaging:Ordered, and resulted, any relevant abnormalities were considered. IV fluids: Possible kidney stone Procedures:were not performed. Assessment: 34-year-old male presenting with groin pain. Possible sports hernia as there is no hernia seen on CT. Possible ligament pain. We'll refer patient to [facility] for further evaluation and management outpatient. We'll prescribe patient Anaprox and Robaxin for symptomatically treatment. Return precautions given of symptoms worsen as documented in the discharge instructions. History, physical exam findings, results of visit, differential diagnosis, medication regimens and plan of future care have been considered. Additional MDM may be found in the ED course. Differential diagnosis considered and final disposition made based on information gathered during evaluation and may not be completely ruled out or specifically listed. Vital signs were rechecked before final disposition and determined to be stable. Diagnosis ICD-10-CM ICD-9-CM 1. Flank pain R10.9 789.09 2. Bilateral groin pain R10.31 789.03 R10.32 789.04 Disposition & Follow Up ED Disposition ED Disposition Condition Comment Disch - Home Stable Patient's Medications START taking these medications METHOCARBAMOL 500 MG TABLET Take 1 tablet by mouth 3 (three) times daily for 5 days. NAPROXEN SODIUM (ANAPROX DS) 550 MG TABLET Take 1 tablet by mouth 2 (two) times daily with meals. CONTINUE taking these medications which have NOT CHANGED TRAMADOL (ULTRAM) 50 MG TABLET Take 1 Tab by mouth every 8 (eight) hours as needed for Pain (scale 4-6). START taking Modified Medications as Prescribed No medications on file STOP taking these medications No medications on file Contact information for follow-up [facility] [address], [address] [facility] [address] Instructions: For follow up of the presenting symptoms. Possible sports hernia Jewel To DO 05/28/2020 11:10 AM ACTIVE COVID-19 PANDEMIC. documented in this encounter Miscellaneous Notes ED Nurse Note - Ratna Buenrostro RN - 05/28/2020 11:38 AM CSTPt given printed and verbal discharge instructions regarding bilateral groin pain, encouraged hydration. 2 Prescriptions provided Discussed Naproxen and to take with food to avoid GI distress. Discussed Methocarbamal side affects and to avoid driving/operating machinery/or engaging in activities requiring alertness while taking. Pt verbalized understanding of instructions, pt awake alert oriented, resp reg unlabored, skin w/d, color appropriate for race, moves all ext well,pt encouraged to follow up with PCP. Advised to seek medical attention for new/prolonged/worsening of symptoms, Symptoms improved No adverse reaction to meds given in ER noted upon discharge PIV d'cd, dressing to site, catheter in tact. Awake, alert oriented, resp reg unlabored, skin w/d, pt leaving amb with steady gait, in no apparent distress. RANCE CHECKER documented in this encounter Plan of Treatment Name Type Priority Associated Diagnoses Date/Ti me BLOOD CULTURE SCREEN LAB STAT Flank pain 10:28 AM INSURANCE CHECKER BLOOD CULTURE SCREEN LAB STAT Flank pain 10:08 AM INSURANCE CHECKER URINE CULTURE LAB STAT Flank pain 05/28/2020 10: 08 AM INSURANCE CHECKER Name Type Priority Associated Diagnoses Order S chedule BLOOD CULTURE SCREEN LAB STAT Flank pain STAT fo r 1 Occurrences starting 2019 until 05/28/2020 BLOOD CULTURE SCREEN LAB Routine Flank pain ONCE fo r 1 Occurrences starting 2019 until 05/28/2020 URINE CULTURE LAB Routine Flank pain ONCE for 1 Occ urrences starting 2019 until 05/28/2020 Health Maintenance Due Date Last Done Comments VARICELLA VACCINES ( of - 1985 2-dose childhood series) Depression Screening 1996 DTaP,Tdap,and Td Vaccines ( - 2003 Tdap) INFLUENZA VACCINE (#1) 2020 PNEUMOCOCCAL 0-64 YEARS COMBINED Aged Out No longer eligible based on SERIES patient's age to complete this topic documented as of this encounter Procedures Procedure Name Priority Date/Time Associated Comments Diagnosis URINALYSIS STAT 05/28/2020 10:08 AM Flank pain Results for this INSURANCE CHECKER procedure are i n the results section. CBC WITH DIFF STAT 05/28/2020 10:08 AM Flank pain Results for this INSURANCE CHECKER procedure are i n the results section. COMP. METABOLIC STAT 05/28/2020 10:08 AM Flank pain Resul ts for this PANEL (55911) INSURANCE CHECKER procedure are in the results section. CT ABDOMEN PELVIS WO Routine 05/28/2020 9:56 AM Flank pain Results for this CONTRAST INSURANCE CHECKER procedure are i n the results section. NOTICE OF PRIVACY Routine 05/28/2020 9:39 AM PRACTICES INSURANCE CHECKER documented in this encounter Results URINALYSIS (05/28/2020 10:08 AM INSURANCE CHECKER) Pathologist Sig nature APPEARANCE Clear Clear [facility] COLOR Yellow Yellow [facility] PH 5.0 4.8 - 8.0 [facility] SP GRAVITY 1.024 1.003 - 1.030 [facility] GLU U QUAL Normal Normal [facility] BLOOD Negative Negative [facility] KETONES Negative Negative [facility] PROTEIN Negative Negative [facility] UROBILIN Normal Normal [facility] BILIRUBIN Negative Negative [facility] NITRITE Negative Negative [facility] LEUK LYNDA Negative Negative [facility] RBC/HPF <1 0 - 3 HPF [facility] WBC/HPF 2 0 - 5 HPF [facility] BACTERIA Few (A) Negative [facility] MUCOUS Slight (A) Negative LPF [facility] SQ EPITH <1 HPF [facility] Specimen Urine - URINE, CLEAN CATCH Performing Organization Address City/State/Zipcode Phone Number [facility] CLIA: [id number] [place] [address] COMP. METABOLIC PANEL ([id number]) (05/28/2020 10:08 AM INSURANCE CHECKER) Pathologist Sig nature NA 137 135 - 145 [facility] mmol/L [facility] K 4.4 3.5 - 5.0 [facility] mmol/L [facility] CL 104 98 - 108 mmol/L [facility] CO2 TOTAL 28 23 - 31 mmol/L [facility] AGAP 5 2 - 16 [facility] BUN 14 7 - 23 mg/dL [facility] GLUCOSE 104 70 - 110 mg/dL [facility] CREATININE 0.79 0.60 - 1.25 [facility] mg/dL [facility] TOTAL BILI 0.6 0.1 - 1.1 mg/dL [facility] CALCIUM 9.6 8.6 - 10.6 [facility] mg/dL [facility] T PROTEIN 7.8 6.3 - 8.2 g/dL [facility] ALBUMIN 4.4 3.5 - 5.0 g/dL [facility] ALK PHOS 76 34 - 122 U/L [facility] ALTv 86 (H) 5 - 50 U/L [facility] AST(SGOT) 49 (H) 13 - 40 U/L [facility] eGFR Calculation 111.6 mL/min/1.73m2 [facility] (Non-) [facility] Y eGFR Calculation 135.3 mL/min/1.73m2 [facility] ([facility] Specimen Blood - VENOUS Narrative Performed At Association of Glomerular Filtration Rate (GFR) [place] [facility] and Staging of Kidney Disease* + + +- + | GFR (mL/min/1.73 m2) | With Kidney Damage | Without Kidney Damage + + +- + | >90 | Stage one | Normal + + +- + | 60-89 | Stage two | Decreased GFR + + +- + | 30-59 | Stage three | Stage three + + +- + | 15-29 | Stage four | Stage four + + +- + | <15 (or dialysis) | Stage five | Stage five + + +- + *Each stage assumes the associated GFR level has been in effect for at least three months. Stages 1 to 5, with or without kidney disease, indicate chronic kidney disease. Notes: Determination of stages one and two (with eGFR >59mL/min/1.73 m2) requires estimation of kidney damage for at least three months as defined by structural or functional abnormalities of the kidney, manifested by either: Pathological abnormalities or Markers of kidney damage (including abnormalities in the composition of the blood or urine or abnormalities in imaging tests). Performing Organization Address City/State/Zipcode Phone Number [facility] CLIA: [id number] [place] [address] CBC WITH DIFF (05/28/2020 10:08 AM INSURANCE CHECKER) [facility] WBC 7.66 4.20 - 10.70 [facility] 10*3/L [facility] RBC 4.65 4.26 - 5.52 [facility] 10*6/L [facility] HGB 13.9 12.2 - 16.4 [facility] g/dL [facility] HCT 39.6 38.4 - 49.3 % [facility] MCV 85.2 81.7 - 95.6 fL [facility] MCH 29.9 26.1 - 32.7 pg [facility] MCHC 35.1 (H) 31.2 - 35.0 [facility] g/dL [facility] RDW-SD 37.2 (L) 38.5 - 51.6 fL [facility] RDW-CV 12.0 (L) 12.1 - 15.4 % [facility] PLT 372 (H) 150 - 328 [facility] 10*3/L HOSPITAL [facility] MPV 9.9 9.8 - 13.0 fL [facility] NRBC/100 WBC 0.0 0.0 - 10.0 /100 [facility] WBCs [facility] NRBC x10^3 <0.01 10*3/L [facility] GRAN MAT (NEUT) % 64.7 % [facility] IMM GRAN % 0.70 % [facility] LYMPH % 25.5 % [facility] MONO % 6.9 % [facility] EOS % 1.4 % [facility] BASO % 0.8 % [facility] GRAN MAT x10^3(ANC) 4.96 1.99 - 6.95 [facility] 10*3/uL [facility]ITAL [facility] IMM GRAN x10^3 0.05 0.00 - 0.06 [facility] 10*3/uL [facility] LYMPH x10^3 1.95 1.09 - 3.23 [facility] 10*3/uL [facility] MONO x10^3 0.53 0.36 - 1.02 [facility] 10*3/uL [facility] EOS x10^3 0.11 0.06 - 0.53 [facility] 10*3/uL [facility] BASO x10^3 0.06 0.01 - 0.09 [facility] 10*3/uL [facility] Specimen Blood - VENOUS Performing Organization Address City/State/Zipcode Phone Number [facility] CLIA: [id number] [place] [address] ABDOMEN PELVIS WO CONTRAST (05/28/2020 9:56 AM INSURANCE CHECKER) Specimen Impressions Performed At PACS/VR/DOSE No urinary system calculi. No hydronephr osis. No acute abdominal or pelvic abnormality . Hepatomegaly. Preliminary Report Dictated by Resident: Michael Davila MD., have review ed this study and agree with the above report. Narrative Performed At EXAM: CT ABDOMEN AND PELVIS WITHOUT CONT RAST PACS/VR/DOSE HISTORY: Flank pain, stone disease suspe cted. COMPARISON: None. TECHNIQUE AND FINDINGS: Contiguous axial imaging from the level of the lung bases through the proximal thighs was pe rformed without the intravenous administration of contrast. Coronal and sagittal reconstructions were obtained. FINDINGS: LOWER THORAX: A 4 mm left lower lobe marlene id pulmonary nodule is noted. Otherwise, the lungs bases are clear. LIVER: Enlarged measuring 21.8 cm in fixed wing aircraft flight mechanic niocaudal dimension. No focal hepatic lesions identified within limits of unenhanced technique. Mild diffuse hepatic steatosis. Normal contou r. GALLBLADDER AND BILIARY TREE: Physiologically distende d gallbladder without radiopaque cholelithiasis. SPLEEN: No splenomegaly. PANCREAS: No ductal dilation. ADRENAL GLANDS: No adrenal nodules. KIDNEYS: No hydronephrosis, stones, or c ontour deforming renal lesion. PERITONEUM AND RETROPERITONEUM: No free air or fluid. LYMPH NODES: No lymphadenopathy. GI TRACT: No dilation or abnormal wall t hickening. Nondilated appendix containing trace amount of hyperattenuating material ( for example on 2:93). PELVIS/BLADDER: Urinary bladder is underdistended limi ting evaluation. No urinary bladder calculi. VESSELS: Unremarkable. BONES AND SOFT TISSUES: No suspicious ly tic or sclerotic bony lesions. Procedure Note [facility], Radiant Results Inft User - 2019 10:54 AM INSURANCE CHECKER EXAM: CT ABDOMEN AND PELVIS WITHOUT CONTRAST HISTORY: Flank pain, stone disease suspe cted. COMPARISON: None. TECHNIQUE AND FINDINGS: Contiguous axial imaging from the level of the lung bases through the proximal thighs was pe rformed without the intravenous administration of contrast. Coronal and sagittal reconstructions were obtained. FINDINGS: LOWER THORAX: A 4 mm left lower lobe marlene id pulmonary nodule is noted. Otherwise, the lungs bases are clear. LIVER: Enlarged measuring 21.8 cm in fixed wing aircraft flight mechanic niocaudal dimension. No focal hepatic lesions identified within limits of unenhanced technique. Mild diffuse hepatic steatosis. Normal contou r. GALLBLADDER AND BILIARY TREE: Physiologi dario distended gallbladder without radiopaque cholelithiasis. SPLEEN: No splenomegaly. PANCREAS: No ductal dilation. ADRENAL GLANDS: No adrenal nodules. KIDNEYS: No hydronephrosis, stones, or c ontour deforming renal lesion. PERITONEUM AND RETROPERITONEUM: No free air or fluid. LYMPH NODES: No lymphadenopathy. GI TRACT: No dilation or abnormal wall t hickening. Nondilated appendix containing trace amount of hyperattenuat ing material (for example on 2:93). PELVIS/BLADDER: Urinary bladder is under distended limiting evaluation. No urinary bladder calculi. VESSELS: Unremarkable. BONES AND SOFT TISSUES: No suspicious ly tic or sclerotic bony lesions. IMPRESSION No urinary system calculi. No hydronephr osis. No acute abdominal or pelvic abnormality . Hepatomegaly. Preliminary Report Dictated by Resident: Parker Ramos I, Michael Mclaughlin MD., have reviewe d this study and agree with the above report. Performing Organization Address City/State/Zipcode Phone Number PACS/VR/DOSE documented in this encounter Visit Diagnoses Diagnosis Flank pain - Primary Abdominal pain, unspecified site Bilateral groin pain Abdominal pain, unspecified site documented in this encounter Administered Medications Medication Order MAR Action Action Date Dose Rate Site ketorolac (TORADOL) injection 30 Given 05/28/2020 10:16 AM INSURANCE CHECKER 3 0 mg mg 30 mg, Slow IV Push, Q6H, 4 doses, First dose on 05/28/20 at 1200, Last dose on 05/29/20 at 0600, Routine Medication Order MAR Action Action Date Dose Rate Site NaCl 0.9% (NS) bolus New Bag 05/28/2020 10:15 AM INSURANCE CHECKER 1,000 mL 99 9 mL/hr infusion 1,000 mL at 999 mL/hr, 1,000 mL, IV Piggyback, ONCE, 1 dose, 05/28/20 at 1045, STAT ondansetron (ZOFRAN (PF)) injection 4 mg Given 05/28/2020 10:16 AM INSURANCE CHECKER 4 mg 4 mg, Slow IV Push, ONCE, 1 dose, 05/28/20 at 0945, Routine documented in this encounter
[2020-07-03] MEDS ORDERED: MORPHINE 4 MG/ML SYR ONE (09:24)
[2020-07-03] MEDS ORDERED: KETOROLAC 30 MG/ML INJ ONE (09:25)
[2020-07-03] MEDS ORDERED: ONDANSETRON 4 MG/2 ML VIAL ONE (09:25)
[2020-07-03 09:38] LABS: Absolute Lymphocytes (CBC) 2.2 K/uL (0.7-4.9); Hematocrit 41.7 % (39.6-49.0); Lymphocytes % 25.3 % (15.3-44.8); MPV 8.8 fL (7.6-11.3); RBC Red Blood Cell Count 4.74 M/uL (4.33-5.43)
[2020-07-03 09:59] LABS: ALT/SGPT 50 U/L (12-78); AST/SGOT 25 U/L (15-37); Albumin 3.7 g/dL (3.4-5.0); Alkaline Phosphatase 94 U/L (45-117); BUN Blood Urea Nitrogen 16 mg/dL (7-18); Bicarbonate 27 mmol/L (21-32); Bilirubin Direct < 0.1 mg/dL (0-0.2); Bilirubin Total 0.4 mg/dL (0.2-1.0); Glucose Level 99 mg/dL (74-106); Lipase 116 U/L (73-393); Potassium 4.1 mmol/L (3.5-5.1); Protein, Total 7.8 g/dL (6.4-8.2); Sodium Level 140 mmol/L (136-145)
--- NOTE | 2020-07-03 10:08 | RAD REPORT ---
EXAM DESCRIPTION: CT - Abdomen Pelvis W Contrast - 07/03/2020 9:49 am CLINICAL HISTORY: ABD PAIN COMPARISON: Abdomen Pelvis W Contrast dated 08/07/2018 TECHNIQUE: Biphasic, helical CT imaging of the abdomen and pelvis was performed following 100 ml non -ionic IV contrast. No oral contrast administered. All CT scans are performed using dose optimization technique as appropriate and may include automated exposure control or mA/KV adjustment according to patient size. FINDINGS: No suspicious findings in the lung bases. The liver, spleen, and pancreas show no suspicious focal findings. Fatty infiltration of the liver is present, new or progressive from July 2018. Gallbladder and biliary tree are also without suspici ous finding. Symmetric renal function is seen with no hydronephrosis or suspicious renal mass. No pyelonephritis o r acute parenchymal process. No bladder abnormalities. No adrenal abnormalities. No dilated bowel loops or bowel wall thickening. No appendicitis. No free air, free fluid or inflamma tory stranding. No hernia, mass or bulky lymphadenopathy. The patient has a few sub centimeter mesen teric lymph nodes which are nonspecific. No suspicious bony findings. IMPRESSION: Contrast enhanced CT abdomen and pelvis showing no acute or emergent finding. Fatty infiltration of the liver is present, new or progressive since July 2018.
--- NOTE | 2020-07-03 10:38 | ER ---
Nurse's Notes [facility] Name: Mateo Gilliam Age: 35 yrs Sex: Male : 1985 Arrival Date: 07/03/2020 Time: 08:33 Bed 8 Private MD: Diagnosis: Abdominal tenderness;Pain in right leg-thigh;Dysuria;Hydrocele, unspecified-SMALL BILATERAL Presentation: 07/03 08:36 Chief complaint: Patient states: right groin pain "since around thanksgiving" radiating aa5 to right testicle. Pt denies known injury, reports increased pain with movement, denies difficulty voiding. 08:36 Coronavirus screen: Client denies travel out of the [place] in the last 14 days. At this aa5 time, the client does not indicate any symptoms associated with coronavirus-19. Ebola Screen: Patient negative for fever greater than or equal to 101.5 degrees Fahrenheit, and additional compatible Ebola Virus Disease symptoms. Initial Sepsis Screen: Does the patient meet any 2 criteria? No. Patient's initial sepsis screen is negative. Does the patient have a suspected source of infection? No. Patient's initial sepsis screen is negative. Risk Assessment: Do you want to hurt yourself or someone else? Patient reports no desire to harm self or others. Onset of symptoms was May 2020. 08:36 Acuity: BONITA 3 aa5 08:36 Method Of Arrival: Ambulatory aa5 Historical: - Allergies: 08:44 No Known Allergies; aa5 - Home Meds: 08:44 None [Active]; aa5 - PMHx: 08:44 None; aa5 - PSHx: 08:44 None; aa5 - Immunization history:: Adult Immunizations unknown. - Social history:: Smoking status: Patient reports the use of cigarette tobacco products, 1-2 cigarettes a day . - Family history:: not pertinent. Screenin:08 Abuse screen: Denies threats or abuse. Denies injuries from another. Nutritional iw screening: No deficits noted. Tuberculosis screening: No symptoms or risk factors identified. Fall Risk None identified. Assessment: 09:20 General: Appears in no apparent distress. comfortable, Behavior is calm, cooperative. iw Pain: Complains of pain in right testicle and groin. Neuro: Level of Consciousness is awake, alert, obeys commands, Oriented to person, place, time, situation, Moves all extremities. Full function. Cardiovascular: Patient's skin is warm and dry. Respiratory: Respiratory effort is even, unlabored, Respiratory pattern is regular, symmetrical. : Reports pain in right testicle, Denies burning with urination. Derm: Skin is intact, is healthy with good turgor. Musculoskeletal: Range of motion: intact in all extremities. 10:35 Reassessment: Patient appears in no apparent distress at this time. Patient and/or iw family updated on plan of care and expected duration. Pain level reassessed. Patient is alert, oriented x 3, equal unlabored respirations, skin warm/dry/pink. Patient states feeling better. Vital Signs: 08:36 BP 148 / 99; Pulse 89; Resp 16; Temp 97.1(TE); Pulse Ox 99% on R/A; Weight 113.4 kg; aa5 Height 5 ft. 5 in. (165.10 cm) (R); Pain 8/10; 08:36 Body Mass Index 41.60 (113.40 kg, 165.10 cm) aa5 ED Course: 08:33 Patient arrived in ED. ag5 08:36 Arm band placed on Patient placed in an exam room, on a stretcher. aa5 08:39 Pradip Damico MD is Attending Physician. mary 08:43 Lauren Daniel, IVAN is Primary Nurse. jl7 08:44 Triage completed. aa5 09:36 Initial lab(s) drawn, by or, sent to lab. Inserted saline lock: 20 gauge in right iw antecubital area, using aseptic technique. 09:49 CT Abd/Pelvis - IV Contrast Only In Process Unspecified. EDMS 10:36 US Scrotum Testicles In Process Unspecified. EDMS 11:04 Ultrasound completed. Patient tolerated well. Notified ED Physician bo. sg3 11:07 Tereso Tafoya MD is Referral Physician. mary 11:07 April Tejeda DO is Referral Physician. mary Administered Medications: 09:35 Drug: TORadol 30 mg Route: IVP; Site: right antecubital; iw 09:35 Drug: morphine 4 mg Route: IVP; Site: right antecubital; iw 09:35 Drug: Zofran (Ondansetron) 4 mg Route: IVP; Site: right antecubital; iw Outcome: 10:38 Discharge ordered by MD. hernandez 11:12 Patient left the ED. iw Signatures: Dispatcher [employer] EDPradip Avalos MD MD cha Williams, Irene RN RN Richelle Weldon RN RN [id number] Lauren Daniel RN RN [id number] Mei Valles 3 Jose Lyn 5
--- NOTE | 2020-07-03 10:39 | EDPHYS ---
Physician Documentation [facility] Name: Mateo Gilliam Age: 35 yrs Sex: Male : 1985 Arrival Date: 07/03/2020 Time: 08:33 Bed 8 Private MD: Pradip Hinton HPI: 07/03 08:55 This 35 yrs old Male presents to ER via Ambulatory with complaints of Groin mary Pain. 08:55 The patient presents with abdominal pain in the right upper quadrant, right lower mary quadrant. Onset: The symptoms/episode began/occurred 2 day(s) ago. The patient complains of pain in the right mid back and right low back. The pain radiates to the right mid back and right low back. Onset: The symptoms/episode began/occurred 2 day(s) ago. Modifying factors: The symptoms are alleviated by nothing. the symptoms are aggravated by movement, palpation/percussion. The patient presents with flank pain, described as crampy, of the right mid back and right low back, scrotal pain, of the right side, tenderness. Modifying factors: The symptoms are alleviated by remaining still, the symptoms are aggravated by movement. Historical: - Allergies: 08:44 No Known Allergies; aa5 - Home Meds: 08:44 None [Active]; aa5 - PMHx: 08:44 None; aa5 - PSHx: 08:44 None; aa5 - Immunization history:: Adult Immunizations unknown. - Social history:: Smoking status: Patient reports the use of cigarette tobacco products, 1-2 cigarettes a day . - Family history:: not pertinent. ROS: 08:55 Constitutional: Negative for fever, chills, and weight loss, Eyes: Negative for injury, mary pain, redness, and discharge, ENT: Negative for injury, pain, and discharge, Neck: Negative for injury, pain, and swelling, Cardiovascular: Negative for chest pain, palpitations, and edema, Respiratory: Negative for shortness of breath, cough, wheezing, and pleuritic chest pain, Back: Negative for injury and pain, MS/Extremity: Negative for injury and deformity, Skin: Negative for injury, rash, and discoloration, Neuro: Negative for headache, weakness, numbness, tingling, and seizure, Psych: Negative for depression, anxiety, suicide ideation, homicidal ideation, and hallucinations, Allergy/Immunology: Negative for hives, rash, and allergies, Endocrine: Negative for neck swelling, polydipsia, polyuria, polyphagia, and marked weight changes, Hematologic/Lymphatic: Negative for swollen nodes, abnormal bleeding, and unusual bruising. 08:55 Abdomen/GI: Positive for abdominal pain, of the posterior aspect of right lateral abdomen, right upper quadrant and right lower quadrant. 08:55 : Positive for testicular pain of the right testicle. Exam: 08:55 Constitutional: This is a well developed, well nourished patient who is awake, alert, mary and in no acute distress. Head/Face: Normocephalic, atraumatic. Eyes: Pupils equal round and reactive to light, extra-ocular motions intact. Lids and lashes normal. Conjunctiva and sclera are non-icteric and not injected. Cornea within normal limits. Periorbital areas with no swelling, redness, or edema. ENT: Nares patent. No nasal discharge, no septal abnormalities noted. Tympanic membranes are normal and external auditory canals are clear. Oropharynx with no redness, swelling, or masses, exudates, or evidence of obstruction, uvula midline. Mucous membranes moist. Neck: Trachea midline, no thyromegaly or masses palpated, and no cervical lymphadenopathy. Supple, full range of motion without nuchal rigidity, or vertebral point tenderness. No Meningismus. Chest/axilla: Normal chest wall appearance and motion. Nontender with no deformity. No lesions are appreciated. Cardiovascular: Regular rate and rhythm with a normal S1 and S2. No gallops, murmurs, or rubs. Normal PMI, no JVD. No pulse deficits. Respiratory: Lungs have equal breath sounds bilaterally, clear to auscultation and percussion. No rales, rhonchi or wheezes noted. No increased work of breathing, no retractions or nasal flaring. Back: No spinal tenderness. No costovertebral tenderness. Full range of motion. Skin: Warm, dry with normal turgor. Normal color with no rashes, no lesions, and no evidence of cellulitis. MS/ Extremity: Pulses equal, no cyanosis. Neurovascular intact. Full, normal range of motion. Neuro: Awake and alert, GCS 15, oriented to person, place, time, and situation. Cranial nerves II-XII grossly intact. Motor strength 5/5 in all extremities. Sensory grossly intact. Cerebellar exam normal. Normal gait. Psych: Awake, alert, with orientation to person, place and time. Behavior, mood, and affect are within normal limits. 08:55 Abdomen/GI: Inspection: abdomen appears normal, Bowel sounds: normal, Palpation: mild abdominal tenderness, in the anterior aspect of right lateral abdomen, posterior aspect of right lateral abdomen, right upper quadrant and right lower quadrant, Liver: no appreciated palpable abnormalities, Hernia: not appreciated. 10:23 : CVA tenderness, on the right, Male external genitalia: normal, Patient is not mary circumisioned. Bladder: is normal, Sexual behavior: the patient is sexually active, and reports a single partner. 10:24 Musculoskeletal/extremity: DVT Exam: No signs of deep vein thrombosis. no pain, no mary swelling, no tenderness, negative Homans' sign noted on exam, no appreciated bluish discoloration, no erythema, no increased warmth. Vital Signs: 08:36 BP 148 / 99; Pulse 89; Resp 16; Temp 97.1(TE); Pulse Ox 99% on R/A; Weight 113.4 kg; aa5 Height 5 ft. 5 in. (165.10 cm) (R); Pain 8/10; 08:36 Body Mass Index 41.60 (113.40 kg, 165.10 cm) aa5 MDM: 08:39 Patient medically screened. mary 08:58 Differential diagnosis: testicular torsion, pancreatitis, nonspecific abdominal pain, mary UTI, urinary retention, diverticulitis, Irritable bowel syndrome, non-specific abd pain, pancreatitis. Data reviewed: vital signs, nurses notes, lab test result(s), radiologic studies. Data interpreted: school bus monitor: not applicable for this patient encounter. rate is 89 beats/min, rhythm is regular, Pulse oximetry: on room air is 99 %. Test interpretation: by ED physician or midlevel provider:. Counseling: I had a detailed discussion with the patient and/or guardian regarding: the historical points, exam findings, and any diagnostic results supporting the discharge/admit diagnosis, lab results, radiology results, the need for outpatient follow up. 07/03 08:54 Order name: Basic Metabolic Panel; Complete Time: 10:19 mary 07/03 08:54 Order name: CBC with Diff; Complete Time: 10:19 mary 07/03 08:54 Order name: Hepatic Function; Complete Time: 10:19 [facility] 07/03 08:54 Order name: Lipase; Complete Time: 10:19 [facility] 07/03 08:54 Order name: Urine Culture [facility] 07/03 10:45 Order name: Urine Dipstick--Ancillary (enter results) em1 07/03 08:54 Order name: IV Saline Lock; Complete Time: 09:36 [facility] 07/03 08:54 Order name: Labs collected and sent; Complete Time: 09:36 [facility] 07/03 08:54 Order name: Urine Dipstick-Ancillary (obtain specimen); Complete Time: 10:42 [facility] 07/03 08:54 Order name: CT Abd/Pelvis - IV Contrast Only; Complete Time: 10:19 [facility] 07/03 08:54 Order name: US Scrotum Testicles [facility] Administered Medications: 09:35 Drug: TORadol 30 mg Route: IVP; Site: right antecubital; iw 09:35 Drug: morphine 4 mg Route: IVP; Site: right antecubital; iw 09:35 Drug: Zofran (Ondansetron) 4 mg Route: IVP; Site: right antecubital; iw Disposition: 07/03/20 10:38 Discharged to Home. Impression: Abdominal tenderness, Pain in right leg - thigh, Dysuria, Hydrocele, unspecified - SMALL BILATERAL. - Condition is Fair. - Discharge Instructions: Abdominal Pain, Adult, Dysuria, Musculoskeletal Pain, Abdominal Pain, Adult, [id number], Hydrocele, Adult. - Prescriptions for Ibuprofen 600 mg Oral Tablet - take 1 tablet by ORAL route every 6 hours As needed take with food; 20 tablet. Cipro 500 mg Oral Tablet - take 1 tablet by ORAL route every 12 hours for 7 days; 14 tablet. - Medication Reconciliation Form, Thank You Letter, Antibiotic Education, Prescription Opioid Use form. - Follow up: Private Physician; When: 2 - 3 days; Reason: Recheck today's complaints, Continuance of care, Re-evaluation by your physician. Follow up: Tereso Tafoya MD; When: 2 - 3 days; Reason: Recheck today's complaints, Re-evaluation by your physician. Follow up: April Tejeda DO; When: 2 - 3 days; Reason: Recheck today's complaints, Continuance of care, Re-evaluation by your physician. - Problem is new. - Symptoms have improved. Signatures: Dispatcher [employer] EDMS Pradip Damico MD MD cha Williams, Irene, RN RN Richelle Weldon RN RN aa5 Corrections: (The following items were deleted from the chart) 11:07 10:38 07/03/2020 10:38 Discharged to Home. Impression: Abdominal tenderness; Pain in mary right leg - thigh; Dysuria; Hydrocele, unspecified - SMALL BILATERAL. Condition is Fair. Discharge Instructions: Abdominal Pain, Adult, Abdominal Pain, Adult, [id number], Musculoskeletal Pain. Prescriptions for Ibuprofen 600 mg Oral Tablet - take 1 tablet by ORAL route every 6 hours As needed take with food; 20 tablet. and Forms are Medication Reconciliation Form, Thank You Letter, Antibiotic Education, Prescription Opioid Use. Follow up: Private Physician; When: 2 - 3 days; Reason: Recheck today's complaints, Continuance of care, Re-evaluation by your physician. Problem is new. Symptoms have improved. [facility] 11:12 11:07/03/2020 10:38 Discharged to Home. Impression: Abdominal tenderness; Pain in iw right leg - thigh; Dysuria; Hydrocele, unspecified - SMALL BILATERAL. Condition is Fair. Discharge Instructions: Abdominal Pain, Adult, Abdominal Pain, Adult, [id number], Musculoskeletal Pain, Dysuria, Hydrocele, Adult. Prescriptions for Ibuprofen 600 mg Oral Tablet - take 1 tablet by ORAL route every 6 hours As needed take with food; 20 tablet, Cipro 500 mg Oral Tablet - take 1 tablet by ORAL route every 12 hours for 7 days; 14 tablet. and Forms are Medication Reconciliation Form, Thank You Letter, Antibiotic Education, Prescription Opioid Use. Follow up: Private Physician; When: 2 - 3 days; Reason: Recheck today's complaints, Continuance of care, Re-evaluation by your physician. Follow up: Tereso Tafoya; When: 2 - 3 days; Reason: Recheck today's complaints, Re-evaluation by your physician. Follow up: April Tejeda; When: 2 - 3 days; Reason: Recheck today's complaints, Continuance of care, Re-evaluation by your physician. Problem is new. Symptoms have improved. [facility]
[2020-07-03 11:02] LABS: Urine Blood NEGATIVE (NEG); Urine Glucose NEGATIVE (NEG); Urine Protein NEGATIVE (NEG); Urine pH 5.5 (5.0-7.0)
--- NOTE | 2020-07-03 11:50 | RAD REPORT ---
EXAM DESCRIPTION: US - Scrotum Testicles - 07/03/2020 10:36 am CLINICAL HISTORY: Abd pain;Pain Preliminary far sinus COMPARISON: Scrotum Testicles dated 08/06/2019 FINDINGS: Testicular tissue is homogeneous with no mass lesion. Doppler evaluation shows normal, sym metric blood flow pattern within the testicle and epididymis tissues. Small bilateral hydroceles are present. No varicocele or other significant extra testicular finding. IMPRESSION: Small bilateral hydroceles. Exam is otherwise unremarkable.
[2020-07-06 23:22] VITALS: BP 148/99; TEMP 97.1; O2SAT 99
== END 2020-07-03 11:12 | disposition home or self-care (01) ==
LOC: ER 08:31
DX: N43.3 Hydrocele, unspecified (principal); R30.0 Dysuria; Z72.0 Tobacco use
CPT/HCPCS: 87088; 85025; 87086; 80048; 36415; 80076; 81003; 83690; 74177; 76870; 96375; 96374; 99284; Q9967; J2405

== ENCOUNTER 2021-12-14 18:17 | Emergency (ER) | payer SELFPAY ==
--- OUTSIDE RECORDS SUMMARY | 2021-12-14 18:21 | XMS REPORT | Continuity of Care Document ---
:1985 Author Organization [facility] t Address [address]. [address] [place] [address] Care Team Providers Name Role Phone ROSA Attending Clinician Unavailable MD JADYN LEE Attending Clinician Unavailable JUSTIN SCHMID Attending Clinician Unavailable Justin Schmid MD Attending Clinician Doctor Unassigned, Name Attending Clinician Unavailable Singer STAPLETON Attending Clinician MD JADYN LEE Admitting Clinician Unavailable Payers Payer Name Policy Type Policy Number Effective Date Expiration Date S bri [facility] [id number] 2020 00:00:00 Problems Condition Condition Condition Status Onset Resolution Last Treating Co mments Source Name Details Category Date Date Treatment Clinician Date No known No known Disease Unive rs active active ity of problems problems [facility] Allergies, Adverse Reactions, Alerts Allergy Allergy Status Severity Reaction(s) Onset Inactive Treating Comm ents Source Name Type Date Date Clinician NO KNOWN Drug Active Univers ALLERGIE Class ity of S [facility] Social History Social Habit Start Date Stop Date Quantity Comments Source Sex Assigned At Uni versity [facility] Exposure to SARS-CoV-2 Not sure [facility] [place] (event) [facility] Smoking Status Start Date Stop Date Source Unknown if ever smoked Universit y [facility] Medications Ordered Filled Start Stop Current Ordering Indication Dosage Frequency Signature Comments Components Source Medication Medication Date Date Medication? Clinician (SIG) Name Name celecoxib Yes [id number] 100mg Take 1 Univers 100 mg 1-15 capsule by ity of capsule 00:00: mouth [place] 00 daily. Medical Branch celecoxib Yes [id number] 100mg Take 1 Univers 100 mg 1-15 capsule by ity of capsule 00:00: mouth [place] 00 daily. Medical Branch ketorolac 2019-07- No 30mg 30 mg, Unive rs (TORADOL) 07-28 Slow IV ity of injection 18:00: 17:59 Push, Q6H, [place] 30 mg 00 :00 4 doses, Medical First dose Branch on 05/28/20 at 1200, Last dose on 05/29/20 at 0600, Routine NaCl 0.9% 2019-07- No 1000mL at 999 Uni vers (NS) bolus 07-28 mL/hr, ity of infusion 16:45: 17:30 1,000 mL, Chet as 1,000 mL 00 :00 IV Medical Piggyback, Branch ONCE, 1 dose, 05/28/20 at 1045, STAT ondansetron 2019-07- No 4mg 4 mg, Slow Univers (ZOFRAN 07-28 IV Push, ity of (PF)) 15:45: 16:16 ONCE, 1 [place] injection 4 00 :00 dose, Sat Med ical mg 05/28/20 at Branch 0945, Routine naproxen 2019-07 Yes [id number] 550mg Take 1 Univers sodium 1-07 [id number] tablet by ity of (ANAPROX 00:00: mouth 2 [place] DS) 550 mg 00 (two) Medical tablet times Branch daily with meals. naproxen 2019-07 Yes [id number] 550mg Take 1 Univers sodium 1-07 [id number] tablet by ity of (ANAPROX 00:00: mouth 2 [place] DS) 550 mg 00 (two) Medical tablet times Branch daily with meals. naproxen 2019-07 Yes [id number] 550mg Take 1 Univers sodium 1-07 [id number] tablet by ity of (ANAPROX 00:00: mouth 2 [place] DS) 550 mg 00 (two) Medical tablet times Branch daily with meals. naproxen 2019-07 Yes [id number] 550mg Take 1 Univers sodium 1-07 [id number] tablet by ity of (ANAPROX 00:00: mouth 2 [place] DS) 550 mg 00 (two) Medical tablet times Branch daily with meals. methocarbam 2019-07 2020- No [id number] 500mg Take 1 Univers oL 500 mg 07-28 [id number] tablet by it y of tablet 00:00: 05:59 mouth 3 [place] 00 :00 (three) Medical times Branch daily for 5 days. traMADOL 2014-07 Yes 50mg Take 1 Tab Uni vers (ULTRAM) 50 2-08 by mouth ity of mg tablet 00:00: every 8 [place] 00 (eight) Medical hours as Branch needed for Pain (scale 4-6). traMADOL 2014-07 Yes 50mg Take 1 Tab Uni vers (ULTRAM) 50 2-08 by mouth ity of mg tablet 00:00: every 8 [place] 00 (eight) Medical hours as Branch needed for Pain (scale 4-6). traMADOL 2014-07 Yes 50mg Take 1 Tab Uni vers (ULTRAM) 50 2-08 by mouth ity of mg tablet 00:00: every 8 [place] 00 (eight) Medical hours as Branch needed for Pain (scale 4-6). traMADOL 2014-07 Yes 50mg Take 1 Tab Uni vers (ULTRAM) 50 2-08 by mouth ity of mg tablet 00:00: every 8 [place] 00 (eight) Medical hours as Branch needed for Pain (scale 4-6). Vital Signs Vital Name Observation Time Observation Value Comments Source Systolic blood 2020-08-05 17:15:00 146 mm[Hg] [facility] Diastolic blood 2020-08-05 17:15:00 101 mm[Hg] [facility] Heart rate 2020-08-05 17:15:00 90 /min [facility] Body temperature 2020-08-05 17:13:00 36.83 Avril [facility] Respiratory rate 2020-08-05 17:13:00 20 /min [facility] Body height 2020-08-05 17:13:00 172.7 cm [facility] Body weight 2020-08-05 17:13:00 112.22 kg [facility] BMI 2020-08-05 17:13:00 37.62 kg/m2 [facility] Oxygen saturation in 2020-08-05 17:13:00 98 /min University of Arterial blood by [facility] sujit Pulse oximetry Branch Systolic blood 2020-05-28 15:45:00 156 mm[Hg] Univer sity of pressure [facility] Branch Diastolic blood 2020-05-28 15:45:00 87 mm[Hg] Unive rsity of pressure [facility] Heart rate 2020-05-28 15:45:00 87 /min Universi ty of [facility] Body temperature 2020-05-28 15:45:00 36.83 Avril [address] of [facility] Branch Respiratory rate 2020-05-28 15:45:00 16 /min Univ ersity of [facility] Branch Body height 2020-05-28 15:45:00 165.1 cm Universi ty of [facility] Body weight 2020-05-28 15:45:00 113.399 kg Universi ty of [facility] BMI 2020-05-28 15:45:00 41.60 kg/m2 Universi ty of [facility] Oxygen saturation in 2020-05-28 15:45:00 99 /min University of Arterial blood by [facility] Pulse oximetry Branch Systolic blood 2020-05-28 15:45:00 156 mm[Hg] Univer sity of pressure [facility] Branch Diastolic blood 2020-05-28 15:45:00 87 mm[Hg] Unive rsity of pressure [facility] Heart rate 2020-05-28 15:45:00 87 /min Universi ty of [facility] Body temperature 2020-05-28 15:45:00 36.83 Avril Univ ersity of [facility] Respiratory rate 2020-05-28 15:45:00 16 /min Univ ersity of [facility] Body height 2020-05-28 15:45:00 165.1 cm Universi ty [facility] [place] [facility] [place] Body weight 2020-05-28 15:45:00 113.399 kg Universi ty of [facility] BMI 2020-05-28 15:45:00 41.60 kg/m2 Universi ty of [facility] Branch Oxygen saturation in 2020-05-28 15:45:00 99 /min University of Arterial blood by [facility] Pulse oximetry Branch Procedures Procedure Date / Time Performed Performing Clinician [facility] e ASSIGNMENT OF BENEFITS 2020-08-05 16:55:15 Doctor Unassigned, No [facility] [place] Name Medical Branch COMP. METABOLIC PANEL 2020-05-28 16:08:00 Jewel To [facility] ([id number]) Medical [place] CBC WITH DIFF 2020-05-28 16:08:[address] [facility] URINALYSIS 2020-05-28 16:08:00 To, [facility] CT ABDOMEN PELVIS WO 2020-05-28 15:56:57 Jewel To [facility] NOTICE OF PRIVACY 2020-05-28 15:39:36 Doctor Unassigned, No [facility] PRACTICES Name [facility] Encounters Start End Encounter Admission Attending Care Care Encounter Source Date/Time Date/Time Type Type Clinicians Facility Department ID 2021-08-16 [facility] [id number] Common 12:01:54 [id number] [facility] 2020-09-14 2020-09-21 Outpatient GIST, [facility] [id number] 00:00:00 00:00:00 DELVIN 206 Method i 2020-09-15 2020-09-15 Outpatient GIST, [facility] [id number] 00:00:00 00:00:[address] DELVIN [address] 2020-09-02 2020-09-02 [id number] Univers 10:45:00 10:45:00 BALA [id number] [facility] 2020-09-02 2020-09-02 Outpatient R SIMÓN [facility] [id number] Univers 10:45:00 10:45:00 BALA [facility] [place] [facility] 2020-08-05 2020-08-05 Office SimónRUST [id number] Univers 10:58:30 11:44:01 Visit Bala Whitaker [id number] i ty of Justin Calvin 4.2.7.2.686 Dafne Lopez [phone] [place] [address] Branch Building 2020-08-05 2020-08-05 [facility] [id number] Univers 10:45:00 10:45:00 BALA [facility] 2020-08-05 2020-08-05 Orders Doctor BALA [id number] Univers 00:00:00 00:00:00 Only Unassigned, CAMILO [id number] ity of [place] [facility] 4.2.7.2.686 [facility] [phone] [facility] 009 Branch 2020-05-28 2020-05-28 Emergency To, [facility] [id number] 09:39:00 11:40:00 Jewel Whitaker [id number] [place] 4.2.7.2.686 [place] [id number] [facility] 2020-05-28 2020-05-28 Emergency To, [facility] [id number] Univers 09:39:00 11:40:00 Jewel Whitaker [id number] i ty of [place] 4.2.7.2.686 [facility] [place] [phone] [place] [address] Branch 2020-05-28 2020-05-28 Emergency X [facility] ERT [id number] Univers 09:39:00 09:39:00 ity of [facility] 2020-05-25 2020-05-25 Outpatient STLMLC [facility] [id number] Common 00:00:00 00:00:00 [facility] Results Test Description Test Time Test Comments Results Result Comments Source SARS-CoV-2 (COVID-19) RNA [Presence] in Respiratory sp ecimen by 2020-09-14 20:32:00 MARCI with probe detection Test Item Value Reference Range Interpretation Comme nts SARS-CoV-2 (COVID-19) RNA [Presence] in Respiratory Not detected No t-Detected specimen by MARCI with probe detection (test code = 99376-3) [id number] 17:05:00 Test Item Value Reference Range Interpretation Comments APPEARANCE (test code = Clear Clear 5446133602) COLOR (test code = Yellow Yellow 6458550761) PH (test code = 4.8-8.0 8273775761) SP GRAVITY (test code = 1.003-1.030 6926647836) GLU U QUAL (test code = Normal Normal 5272807993) BLOOD (test code = Negative Negative 8595778675) KETONES (test code = Negative Negative 2892329739) PROTEIN (test code = Negative Negative 2887-8) UROBILIN (test code = Normal Normal 0624568593) BILIRUBIN (test code = Negative Negative 3760857416) NITRITE (test code = Negative Negative 8789272859) LEUK LYNDA (test code = Negative Negative 8235938893) RBC/HPF (test code = <1 See_Comment [Autom ated message] 5734768100) The system Jipio generated this result transmitted ref erence range: 0 - 3 HP F. The reference range was not used to int erpret this result as normal/abnormal . WBC/HPF (test code = See_Comment [Autom ated message] 6457160359) The system Jipio generated this result transmitted ref erence range: 0 - 5 HP F. The reference range was not used to int erpret this result as normal/abnormal . BACTERIA (test code = Few Negative A 7979142760) MUCOUS (test code = Slight Negative LPF A 1727177274) SQ EPITH (test code = <1 HPF 2012457981) Lab Interpretation (test Abnormal code = 51207-7) [facility] [id number] 16:53:23 No urinary system calculi. No hydronephrosis. No acute abdominal or pelvic abnormality. Hepatomegaly. Preliminary Report Dictated by Resident: Michael Davila MD., have reviewedthis study and agree with theabove report.EXAM: CT ABDOMEN AND PELVIS WITHOUT CONTRAST HISTORY: Flank pain, stone disease suspected. COMPARISON: None. TECHNIQUE AND FINDINGS: Contiguous axial imaging from the level of the lungbases through the proximal thighs was performed without the intravenousadministration of contrast. Coronal and sagittal reconstructions wereobtained. FINDINGS: LOWER THORAX: A 4mm left lower lobe solid pulmonary nodule is noted.Otherwise, the lungs bases are clear. LIVER: Enlarged measuring 21.8 cm in craniocaudal dimension. No focalhepatic lesions identified within limits of unenhanced technique. Milddiffuse hepatic steatosis. Normal contour. GALLBLADDER AND BILIARY TREE: Physiologically distended gallbladder withoutradiopaque cholelithiasis. SPLEEN: No splenomegaly. PANCREAS: No ductal dilation. ADRENAL GLANDS: No adrenal nodules. KIDNEYS: No hydronephrosis, stones, or contour deforming renal lesion. PERITONEUM AND RETROPERITONEUM: No free air or fluid. LYMPH NODES: Nolymphadenopathy. GI TRACT: No dilation or abnormal wall thickening. Nondilated appendixcontaining trace amount of hyperattenuating material (for example on 2:93). PELVIS/BLADDER: Urinary bladder is underdistended limiting evaluation. Nourinary bladder calculi. VESSELS: Unremarkable. BONES AND SOFT TISSUES: No suspicious lytic or sclerotic bony lesions. [facility], Radiant Results Inft User - 05/28/2020 10:54 AM CSTEXAM: CT ABDOMEN AND PELVIS WITHOUT CONTRASTHISTORY: Flank pain, stone disease suspected.COMPARISON: None.TECHNIQUE AND FINDINGS: Contiguous axial imaging from the level of the lungbases through the proximal thighs was performed without the intravenousadministration of contrast. Coronal and sa gittal reconstructions wereobtained.FINDINGS:LOWER THORAX: A 4 mm left lower lobe solid pulmonary nodule is noted.Otherwise, the lungs bases are clear. LIVER: Enlarged measuring 21.8 cm in craniocaudaldimension. No focalhepatic lesions identified within limits of unenhanced technique. Milddiffuse hepatic steatosis. Normal contour.GALLBLADDER AND BILIARY TREE: Physiologically distended gallbladder withoutradiopaque cholelithiasis.SPLEEN: No splenomegaly.PANCREAS: No ductal dilation.ADRENAL GLANDS: No adrenal nodules.KIDNEYS: No hydronephrosis, stones, or contour deforming renal lesion.PERITONEUM AND RETROPERITONEUM: No free air or fluid.LYMPH NODES: No lymphadenopathy.GI TRACT: No dilation or abnormal wall thickening. Nondilated appendixcontaining trace amount of hyperattenuating material (for example on 2:93).PELVIS/BLADDER: Urinary bladder is underdistended limiting evaluation. Nourinary bladder calculi.VESSELS: Unremarkable.BONES AND SOFT TISSUES: No suspicious lytic or sclerotic bony lesions.IMPRESSIONNo urinary system calculi. No hydronephrosis.No acute abdominal or pelvic abnormality.Katelin christiansen.Preliminary Report Dictated by Resident: Michael Gardner MD., have reviewed this study and agree with theabove report. [facility]. METABOLIC PANEL (15976)2020-05-28 16:48:00 Test Item Value Reference Range Interpretation Comments NA (test code = 137 mmol/L 135-145 5173101662) K (test code = 4.4 mmol/L 3.5-5 5608283199) CL (test code = 104 mmol/L 98-108 3939755337) CO2 TOTAL (test code = 28 mmol/L 23-31 6624112606) AGAP (test code = 2-16 4995279100) BUN (test code = 14 mg/dL 7-23 3190956644) GLUCOSE (test code = 104 mg/dL 70-110 6037215965) CREATININE (test code = 0.79 mg/dL 0.6-1.25 8894462714) TOTAL BILI (test code = 0.6 mg/dL 0.1-1.7 0310448870) CALCIUM (test code = 9.6 mg/dL 8.6-10.6 4285768107) T PROTEIN (test code = 7.8 g/dL 6.3-8.2 2652133824) ALBUMIN (test code = 4.4 g/dL 3.5-5 0099617509) ALK PHOS (test code = 76 U/L 34-122 2568277901) ALTv (test code = 86 U/L 5-50 H 1742-6) AST(SGOT) (test code = 49 U/L 13-40 H 7188697293) eGFR Calculation mL/min/1.73m2 (Non-) (test code = 0886461226) eGFR Calculation mL/min/1.73m2 () (test code = 7059946628) NORBERT (test code = NORBERT) Association of Glomerular Filtration Rate (GFR) and Staging of Kidney Disease* + --+ --+ ------+| GFR (mL/min/1.73 m2) ?| With Kidney Damage ?| ?Without Kidney Damage+ --------+ --------+ +| ?>90 ?| ?Stage one ?| ? Normal ?+ ---+ ---+ -------+| ?60-89 ?| ?Stage two ?| ? Decreased GFR ? + --+ --+ ------+| ?30-59 ?| ?Stage three ?| ? Stage three ? + --+ --+ ------+| ?15-29 ?| ?Stage four ? | ? Stage four ?+ ---+ ---+ -------+| ?<15 (or dialysis) ? ?| ?Stage five ? | ? Stage five ?+ ---+ ---+ -------+ *Each stage assumes the associated GFR level has been in effect for at least three months. ?Stages 1 to 5, with or without kidney disease, indicate chronic kidney disease. Notes: Determination of stages one and two (with eGFR >59mL/min/1.73 m2) requires estimation of kidney damage for at least three months as defined by structural or functional abnormalities of the kidney, manifested by either:Pathological abnormalities or Markers of kidney damage (including abnormalities in the composition of the blood or urine or abnormalities in imaging tests). Lab Interpretation Abnormal (test code = 90881-4) [facility] WITH [id number] 16:35:00 Test Item Value Reference Range Interpretation Comments WBC (test code = See_Comment [Automated 8790-2) message] The sy stem which generated this result transmitted reference range : 4.20 - 10.70 10*3/?L. The reference range was not used to interpret this result as normal/abnormal . RBC (test code = See_Comment [Automated 019-8) message] The sy stem which generated this result transmitted reference range : 4.26 - 5.52 10*6/?L. The reference range was not used to interpret this result as normal/abnormal . HGB (test code = 13.9 g/dL 12.2-16.4 718-7) HCT (test code = 39.6 % 38.4-49.3 4544-3) MCV (test code = 85.2 fL 81.7-95.6 787-2) MCH (test code = 29.9 pg 26.1-32.7 785-6) MCHC (test code = 35.1 g/dL 31.2-35 H 786-4) RDW-SD (test code = 37.2 fL 38.5-51.6 L 17426-8) RDW-CV (test code = 12.0 % 12.1-15.4 L 788-0) PLT (test code = See_Comment H [Automated 777-3) message] The sy stem which generated this result transmitted reference range : 150 - 328 10*3/ ?L. The reference r anjali was not used to interpret this result as normal/abnormal . MPV (test code = 9.9 fL 9.8-13 54392-5) NRBC/100 WBC (test See_Comment [Automat ed code = 0130985857) message] The system which generated this result transmitted reference range : 0.0 - 10.0 /100 WBCs. The refer ence range was not u sed to interpret th is result as normal/abnormal . NRBC x10^3 (test code <0.01 See_Comment [Auto mated = 4052419876) message] The s ystem which generated this result transmitted reference range : 10*3/?L. The reference range was not used to interpret this result as normal/abnormal . GRAN MAT (NEUT) % 64.7 % (test code = 770-8) IMM GRAN % (test code 0.70 % = 2833910864) LYMPH % (test code = 25.5 % 736-9) MONO % (test code = 6.9 % 5905-5) EOS % (test code = 1.4 % 713-8) BASO % (test code = 0.8 % 706-2) GRAN MAT x10^3(ANC) 4.96 10*3/uL 1.99-6.95 (test code = 7729180168) IMM GRAN x10^3 (test 0.05 10*3/uL 0-0.06 code = 4698911390) LYMPH x10^3 (test code 1.95 10*3/uL 1.09-3.23 = 731-0) MONO x10^3 (test code 0.53 10*3/uL 0.36-1.02 = 742-7) EOS x10^3 (test code = 0.11 10*3/uL 0.06-0.53 711-2) BASO x10^3 (test code 0.06 10*3/uL 0.01-0.09 = 704-7) Lab Interpretation Abnormal (test code = 43802-9) [facility]"
[2021-12-14] MEDS ORDERED: ONDANSETRON 4 MG/2 ML VIAL ONE (18:43)
[2021-12-14] MEDS ORDERED: Ringers Lactate 1,000 ML IV ONE ×2 (18:43→20:00)
[2021-12-14 19:03] LABS: MPV 8.5 fL (7.6-11.3)
[2021-12-14 19:18] LABS: Absolute Lymphocytes (CBC) 4.4 K/uL (0.7-4.9); Hematocrit 47.9 % (39.6-49.0); Lymphocytes % 28.9 % (15.3-44.8); Potassium 3.4 mmol/L (3.5-5.1); RBC Red Blood Cell Count 5.56 M/uL (4.33-5.43); Troponin High Sensitivity 5.8 pg/mL (<58.9)
--- NOTE | 2021-12-14 19:38 | RAD REPORT ---
EXAM DESCRIPTION: Latasha Single View12/14/2021 7:23 pm CLINICAL HISTORY: Chest pain COMPARISON: 2018 FINDINGS: The lungs appear clear of acute infiltrate. The heart is normal size IMPRESSION: No acute abnormalities displayed
[2021-12-14] MEDS ORDERED: POTASSIUM CL SA 10 MEQ TAB PO ONE (20:00)
[2021-12-14] MEDS ORDERED: KETOROLAC 30 MG/ML INJ ONE (20:50)
--- NOTE | 2021-12-14 21:59 | ER ---
Nurse's Notes [facility] Name: Mateo Gilliam Age: 36 yrs Sex: Male : 1985 Arrival Date: 12/14/2021 Time: 18:19 Bed 20 Private MD: Diagnosis: Orthostatic hypotension Presentation: 12/14 18:48 Chief complaint: Patient states: pale, diaphoretic, CP started today after giving ll1 plasma. Coronavirus screen: Vaccine status: Patient reports being unvaccinated. Client denies travel out of the [place] in the last 14 days. At this time, the client does not indicate any symptoms associated with coronavirus-19. Ebola Screen: Patient denies travel to an Ebola-affected area in the 21 days before illness onset. Initial Sepsis Screen: Does the patient meet any 2 criteria? No. Patient's initial sepsis screen is negative. Does the patient have a suspected source of infection? No. Patient's initial sepsis screen is negative. Risk Assessment: Do you want to hurt yourself or someone else? Patient reports no desire to harm self or others. Onset of symptoms was December 14, 2021. 18:48 Method Of Arrival: Ambulatory ll1 18:48 Acuity: BONITA 2 ll1 Triage Assessment: 18:50 General: Appears uncomfortable, ill, Behavior is cooperative, appropriate for age. ll1 Pain: Denies pain. Neuro: Reports dizziness, a syncopal episode weakness. Cardiovascular: Reports chest pain, fatigue, syncope. Respiratory: No deficits noted. GI: Reports nausea, vomiting. Historical: - Allergies: 18:49 No Known Allergies; ll1 18:50 No Known Allergies; iw - Home Meds: 18:50 None [Active]; iw - PMHx: 18:49 Hypercholesterolemia; ll1 18:50 None; iw - PSHx: 18:49 back SX; ll1 - Immunization history:: Client reports having NOT received the Covid vaccine. - Social history:: Smoking status: Patient reports the use of cigarette tobacco products, denies chronic smoking, but will smoke occasionally. Screenin:58 Abuse screen: Denies threats or abuse. Denies injuries from another. Nutritional iw screening: No deficits noted. Tuberculosis screening: No symptoms or risk factors identified. Fall Risk IV access (20 points). Assessment: 18:40 General: Appears uncomfortable. Pain: Complains of pain in chest Pain does not radiate. iw Pain began. Cardiovascular: Reports fatigue, lightheadedness, nausea, syncope. 20:04 Reassessment: No changes from previously documented assessment. Patient and/or family ll3 updated on plan of care and expected duration. Pain level reassessed. Patient is alert, oriented x 3, equal unlabored respirations, skin warm/dry/pink. C/o H/A 01/28, ERP notified. 20:41 Reassessment: Patient appears in no apparent distress at this time. I recv'd report on joaquín the pt in room #20. I concur with previous assessment. The pt's family is at bedside. Vital Signs: 18:30 BP 84 / 71; Pulse 95; Resp 16; Pulse Ox 96% on R/A; iw 18:48 BP 88 / 71; Pulse 74; Resp 20; Temp 98.0; Pulse Ox 95% ; Pain 0/10; ll1 18:57 BP 95 / 58; Pulse 77; Resp 18; Pulse Ox 98% ; ll1 19:45 BP 117 / 63; Pulse 74; Resp 16; Pulse Ox 100% on R/A; ll3 21:50 BP 128 / 78 Supine; Pulse 77; joaquín 21:51 BP 114 / 71 Sitting; Pulse 79; joaquín 21:51 BP 126 / 70 Standing; Pulse 82; joaquín 22:17 BP 129 / 76; Pulse 83; Resp 18; Pulse Ox 100% on R/A; ld1 ED Course: 18:19 Patient arrived in ED. mr 18:38 Koffi Gutierrez PA is PHCP. jr8 18:38 Pradip Damico MD is Attending Physician. jr8 18:38 Hai Burr, IVAN is Primary Nurse. ll1 18:38 Arm band placed on Patient placed in an exam room, on a stretcher. ll1 18:39 Inserted saline lock: 20 gauge in right antecubital area, using aseptic technique. ll1 Blood collected. 18:49 Triage completed. ll1 18:59 Client placed on continuous cardiac and pulse oximetry monitoring. NIBP monitoring ll1 applied. 19:25 XRAY Chest (1 view) In Process Unspecified. EDMS 20:04 No provider procedures requiring assistance completed. Patient maintains SpO2 ll3 saturation greater than 95% on room air. 21:10 Bed in low position. Call light in reach. Side rails up X2. Adult w/ patient. Cardiac joaquín monitor on. Pulse ox on. NIBP on. 22:17 IV discontinued, intact, bleeding controlled, No redness/swelling at site. ld1 Administered Medications: 18:47 Drug: Ringers - Lactated Ringers Solution 1000 ml Route: IV; Rate: bolus; Site: right iw antecubital; 18:47 Drug: Zofran (Ondansetron) 4 mg Route: IVP; Site: right antecubital; iw 20:48 Follow up: Response: Marked relief of symptoms joaquín 20:03 Drug: Potassium Chloride 40 mEq Route: PO; ll3 20:48 Follow up: Response: No adverse reaction joaquín 20:03 Drug: Ringers - Lactated Ringers Solution 1000 ml Route: IV; Rate: bolus; Site: right ll3 antecubital; 21:50 Follow up: IV Status: Completed infusion; IV Intake: 1000ml joaquín 20:48 Drug: Ketorolac 15 mg Route: IVP; Site: right antecubital; joaquín 20:49 Follow up: Response: No adverse reaction joaquín Medication: 18:59 VIS not applicable for this client. ll1 Intake: 21:50 IV: 1000ml; Total: 1000ml. joaquín Outcome: 21:10 Condition: stable joaquín 21:59 Discharge ordered by MD. gomez 22:17 Discharged to home ambulatory, with family. ld1 22:17 Discharge instructions given to patient. 22:17 Instructed on discharge instructions, follow up and referral plans. Demonstrated understanding of instructions, follow-up care. 22:17 Patient left the ED. ld1 Signatures: Dispatcher [employer] [facility] Jordin Jenn Yvonne Mejia, RN RN iw Koffi Gutierrez PA PA jr8 Hai Burr RN RN ll1 Gogo Russ RN RN ld1 Anshul Lobo RN RN ll3 Merline Abebe RN RN joaquín Corrections: (The following items were deleted from the chart) 18:48 18:20 BP 84 / 71; Pulse 95bpm; Resp 16bpm; Pulse Ox 96% RA; iw iw
--- NOTE | 2021-12-14 21:59 | EDPHYS ---
Physician Documentation [facility] Name: Mateo Gilliam Age: 36 yrs Sex: Male : 1985 Arrival Date: 12/14/2021 Time: 18:19 Bed 20 Private MD: JYOTSNA Physician Pradip Damico HPI: 12/14 19:39 This 36 yrs old Male presents to ER via Ambulatory with complaints of jr8 Dizziness, Sweating, Chest Pain, Near Syncope. 19:39 Onset: The symptoms/episode began/occurred acutely, just prior to arrival, today. jr8 Severity of symptoms: At their worst the symptoms were moderate in the emergency department the symptoms are unchanged. The patient has not experienced similar symptoms in the past. The patient has not recently seen a physician. Patient stated that he had given plasma around 3 PM today and had felt fine afterwards. Went with his friend to go play Frisbee golf but before starting started to become hot and dizzy. Patient was brought to the emergency room at that time. Upon check-in patient was pale, cool, diaphoretic. Stated that he had some chest tightness. Historical: - Allergies: 18:49 No Known Allergies; ll1 18:50 No Known Allergies; iw - Home Meds: 18:50 None [Active]; iw - PMHx: 18:49 Hypercholesterolemia; ll1 18:50 None; iw - PSHx: 18:49 back SX; ll1 - Immunization history:: Client reports having NOT received the Covid vaccine. - Social history:: Smoking status: Patient reports the use of cigarette tobacco products, denies chronic smoking, but will smoke occasionally. ROS: 19:39 Eyes: Negative for injury, pain, redness, and discharge, ENT: Negative for injury, jr8 pain, and discharge, Neck: Negative for injury, pain, and swelling, Respiratory: Negative for shortness of breath, cough, wheezing, and pleuritic chest pain, Abdomen/GI: Negative for abdominal pain, nausea, vomiting, diarrhea, and constipation, Back: Negative for injury and pain, MS/Extremity: Negative for injury and deformity, Skin: Negative for injury, rash, and discoloration. 19:39 Cardiovascular: Positive for chest pain. 19:39 Neuro: Positive for dizziness. Exam: 19:39 ENT: Nares patent. No nasal discharge, no septal abnormalities noted. Tympanic jr8 membranes are normal and external auditory canals are clear. Oropharynx with no redness, swelling, or masses, exudates, or evidence of obstruction, uvula midline. Mucous membranes moist. Neck: Trachea midline, no thyromegaly or masses palpated, and no cervical lymphadenopathy. Supple, full range of motion without nuchal rigidity, or vertebral point tenderness. No Meningismus. Cardiovascular: Regular rate and rhythm with a normal S1 and S2. No gallops, murmurs, or rubs. Normal PMI, no JVD. No pulse deficits. Respiratory: Lungs have equal breath sounds bilaterally, clear to auscultation and percussion. No rales, rhonchi or wheezes noted. No increased work of breathing, no retractions or nasal flaring. Abdomen/GI: Soft, non-tender, with normal bowel sounds. No distension or tympany. No guarding or rebound. No evidence of tenderness throughout. MS/ Extremity: Pulses equal, no cyanosis. Neurovascular intact. Full, normal range of motion. 19:39 Neuro: Awake and alert, GCS 15, oriented to person, place, time, and situation. Cranial nerves II-XII grossly intact. Motor strength 5/5 in all extremities. Sensory grossly intact. 19:39 Constitutional: The patient appears alert, awake, pale. 19:39 Skin: Appearance: Color: pale, Temperature: cool, Moisture: diaphoretic. Vital Signs: 18:30 BP 84 / 71; Pulse 95; Resp 16; Pulse Ox 96% on R/A; iw 18:48 BP 88 / 71; Pulse 74; Resp 20; Temp 98.0; Pulse Ox 95% ; Pain 0/10; ll1 18:57 BP 95 / 58; Pulse 77; Resp 18; Pulse Ox 98% ; ll1 19:45 BP 117 / 63; Pulse 74; Resp 16; Pulse Ox 100% on R/A; ll3 21:50 BP 128 / 78 Supine; Pulse 77; joaquín 21:51 BP 114 / 71 Sitting; Pulse 79; joaquín 21:51 BP 126 / 70 Standing; Pulse 82; joaquín 22:17 BP 129 / 76; Pulse 83; Resp 18; Pulse Ox 100% on R/A; ld1 MDM: 18:38 Patient medically screened. jr8 21:54 Data reviewed: vital signs, nurses notes, lab test result(s), EKG, radiologic studies, jr8 plain films. Data interpreted: Pulse oximetry: on room air is 100 %. Interpretation: normal. Counseling: I had a detailed discussion with the patient and/or guardian regarding: the historical points, exam findings, and any diagnostic results supporting the discharge/admit diagnosis, lab results, radiology results, the need for outpatient follow up, a family practitioner, to return to the emergency department if symptoms worsen or persist or if there are any questions or concerns that arise at home. Response to treatment: the patient's symptoms have resolved after treatment, patient is well hydrated. 21:58 ED course: Patient back to baseline and hemodynamically stable at this time. Able to jr8 get up and walk around without any dizziness or near syncopal-like episodes. Will discharge home and continue to hydrate. Discussed with him no exertive activities for the next 24 to 48 hours. If you feel worsening point time to come back for further evaluation. Patient At this time.. 12/14 18:41 Order name: Basic Metabolic Panel; Complete Time: 19:30 12/14 18:41 Order name: CBC with Diff; Complete Time: 19:30 12/14 18:41 Order name: Magnesium; Complete Time: 19:30 12/14 18:41 Order name: Troponin HS; Complete Time: 19:30 12/14 18:41 Order name: XRAY Chest (1 view); Complete Time: 19:41 12/14 18:41 Order name: CK; Complete Time: 19:30 12/14 18:41 Order name: EKG; Complete Time: 18:41 12/14 18:41 Order name: Cardiac monitoring; Complete Time: 18:57 12/14 18:41 Order name: EKG - Nurse/Tech; Complete Time: 18:57 12/14 18:41 Order name: IV Saline Lock; Complete Time: 18:57 12/14 18:41 Order name: Labs collected and sent; Complete Time: 18:57 12/14 18:41 Order name: O2 Per Protocol; Complete Time: 18:57 12/14 18:41 Order name: O2 Sat Monitoring; Complete Time: 18:57 Administered Medications: 18:47 Drug: Ringers - Lactated Ringers Solution 1000 ml Route: IV; Rate: bolus; Site: right iw antecubital; 18:47 Drug: Zofran (Ondansetron) 4 mg Route: IVP; Site: right antecubital; iw 20:48 Follow up: Response: Marked relief of symptoms joaquín 20:03 Drug: Potassium Chloride 40 mEq Route: PO; ll3 20:48 Follow up: Response: No adverse reaction joaquín 20:03 Drug: Ringers - Lactated Ringers Solution 1000 ml Route: IV; Rate: bolus; Site: right ll3 antecubital; 21:50 Follow up: IV Status: Completed infusion; IV Intake: 1000ml joaquín 20:48 Drug: Ketorolac 15 mg Route: IVP; Site: right antecubital; joaquín 20:49 Follow up: Response: No adverse reaction joaquín Disposition Summary: 12/14/21 21:59 Discharge Ordered Location: Home jr8 Problem: new jr8 Symptoms: have improved jr8 Condition: Stable jr8 Diagnosis - Orthostatic hypotension jr8 Followup: jr8 - With: Private Physician - When: 2 - 3 days - Reason: Recheck today's complaints, Continuance of care, Re-evaluation by your physician Discharge Instructions: - Discharge Summary Sheet jr8 - Hypotension jr8 - Orthostatic Hypotension jr8 Forms: - Medication Reconciliation Form jr8 - Thank You Letter jr8 - Antibiotic Education jr8 - Prescription Opioid Use jr8 Signatures: Dispatcher [employer] Yvonne Velasquez RN RN Koffi Gutierrez PA PA jr8 Hai Burr RN RN ll1 Anshul Lobo RN RN ll3 Merline Abebe RN RN joaquín
[2021-12-14 22:35] VITALS: TEMP 98
[2021-12-14 22:39] VITALS: O2SAT 100
[2021-12-14 22:44] VITALS: BP 129/76
--- NOTE | 2021-12-15 17:59 | EKG ---
Test Date: 2021-12-14 Test Time: 18:34:30 Reconciliation Accountant: HENOK MEASUREMENT RESULTS: Intervals: Rate: 73 WI: 150 QRSD: 78 QT: 348 QTc: 383 Winger: P: 39 WI: 150 QRS: 30 T: 22 INTERPRETIVE STATEMENTS: Normal sinus rhythm Normal ECG Compared to ECG 07/25/2017 00:36:37 No significant changes Electronically Signed On 12-15-21 17:57:23 CDT by Shakir Puckett
== END 2021-12-14 22:17 | disposition home or self-care (01) ==
LOC: ER 18:17
DX: I95.1 Orthostatic hypotension (principal); E78.00 Pure hypercholesterolemia, unspecified; F17.210 Nicotine dependence, cigarettes, uncomplicated
CPT/HCPCS: 36415; 71045; 80048; 82550; 83735; 84484; 85025; 93005; 96365; 96366; 96375; 99285; J2405; J7120

== ENCOUNTER 2023-05-16 07:23 | Day surgery (SDC) | payer BC ==
[2023-05-16] MEDS: Ringers Lactate 1,000 ML IV ONE ×2 (07:50→08:44)
[2023-05-16] MEDS ORDERED: LIDOCAINE 1% MPF 5 ML VIAL ONE (08:52)
[2023-05-16] MEDS ORDERED: propofoL 200 MG/20 ML VIAL IV ONE ×2 (08:52→09:04)
[2023-05-16 16:28] VITALS: BP 137/82; TEMP 96.8; O2SAT 100
== END 2023-05-16 09:30 | disposition home or self-care (01) ==
LOC: OR 07:23
PROVIDERS: ATTEND Internal Medicine Gastroenterology
PROC: 0DB68ZX Excision of Stomach, Via Natural or Artificial Opening Endoscopic, Diagnostic (ICD-10-PCS; 2023-05-16)
PROC: 0DB38ZX Excision of Lower Esophagus, Via Natural or Artificial Opening Endoscopic, Diagnostic (ICD-10-PCS; principal; 2023-05-16 08:30)
DX: K21.9 Gastro-esophageal reflux disease without esophagitis (principal); R10.13 Epigastric pain; K29.50 Unspecified chronic gastritis without bleeding; K20.90 Esophagitis, unspecified without bleeding
CPT/HCPCS: 88312; 88305; 43239; J2704 ×2; J2001; J7120

== ENCOUNTER 2023-05-30 07:26 | Day surgery (SDC) | payer BC ==
[2023-05-30] MEDS ORDERED: Ringers Lactate 1,000 ML IV ONE (07:50)
[2023-05-30] MEDS ORDERED: LIDOCAINE 1% MPF 5 ML VIAL ONE (08:00)
[2023-05-30] MEDS ORDERED: propofoL 200 MG/20 ML VIAL IV ONE (08:00)
[2023-05-30 09:31] VITALS: O2SAT 100
[2023-05-30 09:54] VITALS: BP 109/62; TEMP 97.3
== END 2023-05-30 09:50 | disposition home or self-care (01) ==
LOC: OR 07:26
PROVIDERS: ATTEND Internal Medicine Gastroenterology
PROC: 0DBN8ZX Excision of Sigmoid Colon, Via Natural or Artificial Opening Endoscopic, Diagnostic (ICD-10-PCS; principal; 2023-05-30 08:30)
DX: K92.1 Melena (principal); D12.5 Benign neoplasm of sigmoid colon; E66.9 Obesity, unspecified; Z68.41 Body mass index [BMI] 40.0-44.9, adult; K57.30 Diverticulosis of large intestine without perforation or abscess without bleeding; K64.8 Other hemorrhoids
CPT/HCPCS: 45384; 88305; J2704; J2001; J7120